=== PATIENT | male | born 1935 | race Caucasian/White ===

== ENCOUNTER 2018-05-22 06:17 | Inpatient (IN) | payer OTHER, BC ==
[~2018-05-22] VITALS: Ht 175.3 cm; Wt 103.1 kg
[2018-05-22] VITALS (7 sets, daily range): BP systolic 93–138
--- NOTE | 2018-05-22 06:20 | NUR ---
Patient to ER bed 4 to gown for evaluation. Side rails up.
--- NOTE | 2018-05-22 06:25 | NUR ---
Patient AOx4, brought to ER via wheelchair for complaint of SOB and epigastric pain 04/10 since 0000. On arrival O2 sat 98% RA. No acute respiratory distress noted. Daughter at bedside.
--- NOTE | 2018-05-22 06:30 | NUR ---
ER MD Grubbs at bedside for medical evaluation.
[2018-05-22] MEDS ORDERED: CEPH-568 PO (06:53)
[2018-05-22] MEDS ORDERED: METH5TAB2 PO (07:19)
[2018-05-22] MEDS ORDERED: HYDR25TA4 PO (07:20)
[2018-05-22] MEDS ORDERED: TAMS-11 PO (07:21)
[2018-05-22] MEDS ORDERED: HYDR-4272 PO (07:22)
[2018-05-22] MEDS ORDERED: BICA50TA PO (07:22)
[2018-05-22] MEDS ORDERED: DOCU250C75 PO (07:23)
[2018-05-22 07:32] LABS: BASOPHILS % (AUTO) 0.1 % (0.0-2.0); HEMATOCRIT 34.7 % (36-54); HEMOGLOBIN 11.6 g/dL (14.0-18.0); LYMPHOCYTES # (AUTO) 0.2 K/uL (1.0-5.5); LYMPHOCYTES % (AUTO) 1.5 % (20.5-51.5); MEAN CORPUSCULAR HEMOGLOBIN 34 pg (27-31); MEAN CORPUSCULAR HGB CONC 33 % (32-36); MEAN CORPUSCULAR VOLUME 102 fL (79.0-98.0); MONOCYTES # (AUTO) 0.8 K/uL (0.0-1.0); MONOCYTES % (AUTO) 5.6 % (1.7-9.3); NEUTROPHILS # (AUTO) 12.6 K/uL (1.8-7.7); NEUTROPHILS % (AUTO) 92.8 % (40.0-70.0); PLATELET COUNT (AUTO) 288 K/uL (130-430); RED CELL DISTRIBUTION WIDTH 17.7 % (9.0-15.0); WHITE BLOOD COUNT (AUTO) 13.6 K/uL (4.8-10.8)
[2018-05-22 07:39] LABS: ANION GAP 12 (5-15); CALCIUM 9.1 mg/dL (8.4-11.0); CHLORIDE 104 mmol/L (98-107); CREATININE 1.13 mg/dL (0.55-1.30); GLUCOSE 122 mg/dL (70-99); POTASSIUM 3.2 mmol/L (3.5-5.1); SODIUM SERUM 140 mmol/L (136-145); UREA NITROGEN, BLOOD 22 mg/dL (8-21)
[2018-05-22] MEDS ORDERED: PIPERACILLIN/TAZO 3.375 GM in NS 50 ML IV ONE (07:45)
[2018-05-22] MEDS ORDERED: VANCOMYCIN HCL 1,000 MG in NS 250 ML IV ONE (07:45)
[2018-05-22] MEDS ORDERED: POTASSIUM CHLORIDE 20 MEQ TAB.PRT.SR PO ONE (07:45)
[2018-05-22 07:47] LABS: ALANINE AMINOTRANSFERASE 74 U/L (12-78); ALBUMIN 3.2 g/dL (3.4-4.8); ASPARTATE AMINOTRANSFERASE 148 U/L (10-37); TOTAL BILIRUBIN 2.7 mg/dL (0.0-1.0)
--- NOTE | 2018-05-22 07:48 | NUR ---
Daughter Denia states pt is a full code and signed paperwork
[2018-05-22] MEDS ORDERED: VANCOMYCIN HCL 1000 MG/VIAL IV ONE (07:56)
[2018-05-22] MEDS ORDERED: PIPERACILLIN/TAZOBACTAM 3.375 GM/VIAL (ZOSYN) IV ONE (07:56)
[2018-05-22] MEDS ORDERED: NACL 0.9% 1,000 ML IV ONE (08:00)
--- NOTE | 2018-05-22 08:10 | NUR ---
Patient will be admitted to care of . Admitted to Telemetry unit. Will go to room 130A. Belongings list completed. Summary report printed. Report will be given at bedside.
--- NOTE | 2018-05-22 08:16 | NUR ---
ADMISSION NOTE Received patient from ER via maximiliano, received report from CHIQUIS ROGEL. Patient admitted with diagnosis of COPD. Patient oriented to hospital routine, call light, toileting and safety-patient verbalized understanding.
--- NOTE | 2018-05-22 08:20 | NUR ---
initial notes rec patient for er with a dx of copd. awake alert with ivl on the l ac intact. hob slightly elevated with with resp easy and unlabored at this time. accompanied by family at bedside. noted bilateral leg to be edematous and also dressing on both legs. bed in low position and side rails up and locked. call light iwhtn reached and knows when to call for assistance.
--- NOTE | 2018-05-22 10:00 | NUR ---
rounds seen by dr zhang and with orders. sleeps at intervals.
[2018-05-22] MEDS ORDERED: IPRATROPIUM BROM 0.5 MG/2.5 ML VIAL.NEB (ATROVENT) INH PRN (11:00)
[2018-05-22] MEDS ORDERED: ALBUTEROL SULFATE 0.083% 2.5 MG/3 ML VIAL.NEB INH PRN (11:00)
[2018-05-22] MEDS ORDERED: METHADONE HCL 5 MG PO PRN (11:15)
[2018-05-22] MEDS ORDERED: cefTRIAXone 1 GM in D5W 50 ML IV SCH (12:00)
[2018-05-22] MEDS: HYDROcodone/ACETAMIN 5-325 MG TAB (NORCO/ VICODIN) PO PRN ×3 (12:24→23:04)
--- NOTE | 2018-05-22 12:41 | NUR ---
rounds due abx was given as ordered. incontinent of urine and keep patieny dry and clean. call light within reached.
--- NOTE | 2018-05-22 12:55 | NUR ---
PAGED PAGED DIMA YOUSSEF AT [phone] SPOKE WITH CHRISTOPHER.
[2018-05-22] MEDS ORDERED: AZITHROMYCIN 500 MG in NS 250 ML IV SCH (13:00)
--- NOTE | 2018-05-22 13:01 | NUR ---
PAGED PAGED DIMA YOUSSEF AT [phone] SPOKE WITH EXCHANGE.
[2018-05-22] MEDS: ALBUTEROL SULFATE 0.083% 2.5 MG/3 ML VIAL.NEB INH SCH ×2 (13:21→19:54)
[2018-05-22] MEDS: IPRATROPIUM BROM 0.5 MG/2.5 ML VIAL.NEB (ATROVENT) INH SCH ×2 (13:22→19:55)
--- NOTE | 2018-05-22 14:00 | NUR ---
rounds family at bedside. resp easy and unlabored. no sob noted. hob slightly elevated.
--- NOTE | 2018-05-22 16:00 | NUR ---
rounds sleeps at intervals and resting comfortably. no osb noted. call light within reached.
--- NOTE | 2018-05-22 16:17 | NUR ---
CONSULTATION CALLED REASON FOR CONSULTATION:COPD WAS CONSULT CALLED?Y PERSON WHO WAS NOTIFIED:ALEX CONSULTING PHYSICIAN:CASSANDRA CRUZ HOTEL YARDPERSON SPECIALTY:PULMONARY HOTEL YARDPERSON PHONE NUMBER:[phone] ORDERING PHYSICIAN:DIMA YOUSSEF
[2018-05-22] MEDS ORDERED: ENOXAPARIN SODIUM 40 MG/0.4 ML SYRINGE SUBCUT ONE (17:45)
--- NOTE | 2018-05-22 18:41 | NUR ---
closing notes dressing changed in the r leg ulcer done and put a consult for jolly in am. medicated with norco as ordered. bothe legs elevated on a pillow. was seen by sahil at bedside and with orders. family in the room with patient. bed in low position and side rails up and locked. call light within reached.
--- NOTE | 2018-05-22 19:30 | NUR ---
PM ASSESSMENT REPORT RECEIVED FROM DAY RN. PT RECEIVED IN BED WITH EYES OPEN, AAOX4, AND ABLE TO VERBALIZE NEEDS. FAMILY IS AT BEDSIDE. PT SR WITH 1ST DEGREE AV BLOCK ON MONITOR. PT ON RA, BREATHING IS EVEN AND UNLABORED. LAC 20G TO SL, PATENT AND INTACT. PT PREFERS TO LAY ON L SIDE DUE TO PAIN LOCATED IN RT HIP AND RLE. PT C/O OF PAIN AT THIS TIME AND WILL MEDICATE PER ORDERS. HOB ELEVATED, BED IN LOWEST POSITION CALL LIGHT IN REACH. WILL CONTINUE TO MONITOR PT.
--- NOTE | 2018-05-22 19:35 | NUR ---
MD TORRI NICOLE MADE AWARE OF PT LIPASE [phone] AT THIS TIME. NEW ORDERS LEFT TO MAKE PT NPO AND START ON IVF. WILL CARRY OUT ORDERED.
--- NOTE | 2018-05-22 20:30 | NUR ---
VENOUS DOPPLER US PT TO RECEIVE VENOUS DOPPLER US AT THIS TIME TO R/O DVT. FAMILY INSISTENT THAT PT CANNOT LIE ON HIS BACK D/T PAIN. EXPLAINED TO FAMILY IMPORTANCE OF US AT THIS TIME AND FAMILY AGREES TO CONTINUE TO WITH US. RT LEG FOUND TO BE NEGATIVE FOR DVT PER US TECH, PT REFUSED LLE US AT THIS TIME D/T PAIN. WILL CONTINUE TO MONITOR PT.
[2018-05-22] MEDS: D5NS 1,000 ML IV SCH (20:53)
[2018-05-22] MEDS: METHADONE HCL 10 MG TABLET PO SCH (20:53)
--- NOTE | 2018-05-22 23:15 | NUR ---
RN ROUNDS PT COMPLAINING OF PAIN IN RLE AT THIS TIME. PT STATES HE IS UNABLE TO SLEEP D/T PAIN. PT REPOSITIONED AND MADE COMFORTABLE. PT GIVEN NORCO PER ORDERS, NO ADVERSE REACTIONS NOTED. WILL CONTINUE TO MONITOR PT.
[2018-05-23] MEDS: IPRATROPIUM BROM 0.5 MG/2.5 ML VIAL.NEB (ATROVENT) INH SCH ×4 (00:50→20:17)
[2018-05-23] MEDS: ALBUTEROL SULFATE 0.083% 2.5 MG/3 ML VIAL.NEB INH SCH ×4 (00:50→20:17)
--- NOTE | 2018-05-23 02:37 | NUR ---
RN ROUNDS PT C/O OF PAIN PRIMARILY ON RT SIDE OF BODY AT THIS TIME. PER PT HE IS STILL UNABLE TO SLEEP AND REFUSES REPOSITIONING AT THIS TIME. PT MADE AWARE THAT PAIN MEDICATION IS NOT DUE AT THIS TIME AND WILL BE ADMINISTERED WHEN POSSIBLE. WILL CONTINUE TO MONITOR PT.
--- NOTE | 2018-05-23 04:05 | NUR ---
RN ROUNDS PT RESTING IN BED WITH EYES CLOSED. BREATHING IS EVEN AND UNLABORED ON RA. NO S/S OF ACUTE DISTRESS NOTED. WILL CONTINUE TO MONITOR PT.
[2018-05-23] MEDS: D5NS 1,000 ML IV SCH ×2 (04:51→17:27)
[2018-05-23] MEDS: HYDROcodone/ACETAMIN 5-325 MG TAB (NORCO/ VICODIN) PO PRN ×3 (04:52→15:29)
--- NOTE | 2018-05-23 06:25 | NUR ---
MD ROUNDS DR. NICOLE IN HOUSE. MD MADE AWARE OF PT C/O CHEST PAIN 05/10. PER DAUGHTER PT TAKES PERCOCET AT HOME FOR PAIN MANAGEMENT PRN. MD TO ORDER STAT EKG AND MORPHINE 2MG IVP X1. WILL CARRY OUT ORDERED.
[2018-05-23] MEDS ORDERED: MORPHINE 2 MG/ML INJ. SYRINGE IVP ONE (06:30)
[2018-05-23] MEDS ORDERED: MORPHINE 2 MG/ML INJ. SYRINGE ONE (06:47)
--- NOTE | 2018-05-23 06:55 | NUR ---
CLOSING NOTES PT RESTING IN BED WITH FAMILY AT BEDSIDE. PT C/O OF CHEST DISCOMFORT 05/10 AT THIS TIME. PT MEDICATED PER ORDERS, NO S/S OF ADVERSE REACTIONS NOTED. BREATHING IS EVEN AND UNLABORED ON RA. D5 NS INFUSING THROUGH LAC 20G AT 100 CC/HR. IV SITE PATENT AND INTACT. NO OTHER NEEDS VERBALIZED AT THIS TIME. WILL CONTINUE TO MONITOR PT.
[2018-05-23 07:02] LABS: BASOPHILS % (AUTO) 0.1 % (0.0-2.0); EOSINOPHILS % (AUTO) 0.2 % (0.0-4.0); HEMATOCRIT 30.7 % (36-54); HEMOGLOBIN 10.4 g/dL (14.0-18.0); LYMPHOCYTES # (AUTO) 0.3 K/uL (1.0-5.5); LYMPHOCYTES % (AUTO) 2.6 % (20.5-51.5); MEAN CORPUSCULAR HEMOGLOBIN 35 pg (27-31); MEAN CORPUSCULAR HGB CONC 34 % (32-36); MEAN CORPUSCULAR VOLUME 104 fL (79.0-98.0); MONOCYTES # (AUTO) 0.4 K/uL (0.0-1.0); MONOCYTES % (AUTO) 3.5 % (1.7-9.3); NEUTROPHILS # (AUTO) 12.1 K/uL (1.8-7.7); NEUTROPHILS % (AUTO) 93.6 % (40.0-70.0); PLATELET COUNT (AUTO) 215 K/uL (130-430); RED BLOOD CELL COUNT(AUTO) 2.95 MIL/uL (4.2-6.2); RED CELL DISTRIBUTION WIDTH 17.6 % (9.0-15.0); WHITE BLOOD COUNT (AUTO) 12.8 K/uL (4.8-10.8)
[2018-05-23 07:05] LABS: ALANINE AMINOTRANSFERASE 84 U/L (12-78); ALBUMIN 2.6 g/dL (3.4-4.8); ANION GAP 10 (5-15); ASPARTATE AMINOTRANSFERASE 74 U/L (10-37); CALCIUM 8.4 mg/dL (8.4-11.0); CHLORIDE 105 mmol/L (98-107); CREATININE 1.12 mg/dL (0.55-1.30); GLUCOSE 128 mg/dL (70-99); SODIUM SERUM 139 mmol/L (136-145); UREA NITROGEN, BLOOD 22 mg/dL (8-21)
[2018-05-23 07:44] LABS: TOTAL BILIRUBIN 4.1 mg/dL (0.0-1.0)
--- NOTE | 2018-05-23 08:00 | NUR ---
initial notes rec patient awake alert with ivf infusing well on the l ac. no infiltration noted. denies pain at this time. hob slightly elevated and resp easy and unlabored. no acute distress noted. npo maintain re elevated lipase. bed in low position and side rails up and locked. call light within reached and knows when to call for help. willcotninue to monitor patient.
[2018-05-23 08:05] VITALS: BP_SYST 133
[2018-05-23] MEDS ORDERED: DIATR MEGLU/DIATRIZ SOD 30 ML SOLUTION PO ONE (08:08)
--- NOTE | 2018-05-23 08:10 | NUR ---
Nutrition Update Jimmy Scale 15 noted. Pt admitted for COPD. Diet: NPO BMI: 29.5 kg/m2 RD to follow per nutrition care standards.
--- NOTE | 2018-05-23 10:00 | NUR ---
rounds pt was taken to ct scan of the abdomen via bed , accompanied by family. no sob noted.
[2018-05-23] MEDS ORDERED: POTASSIUM CHLORIDE 40 MEQ, LIDOCAINE JECT 2% PF 100 MG 50 MG in NS 250 ML IV ONE (12:00)
--- NOTE | 2018-05-23 12:00 | NUR ---
rounds npo maintained. sleeps at intervals. no sob noted.
[2018-05-23 12:10] VITALS: BP_SYST 151
[2018-05-23] MEDS: PIPERACILLIN/TAZO 3.375/DEX-IS 50 ML IV SCH ×3 (12:36→23:15)
[2018-05-23] MEDS ORDERED: IOHEXOL 100 ML IV ONE (12:38)
[2018-05-23] MEDS: HYDROCHLOROTHIAZIDE 25 MG TABLET (HCTZ) PO SCH (12:47)
[2018-05-23] MEDS: DOCUSATE SODIUM 100 MG CAPSULE PO SCH (12:48)
[2018-05-23] MEDS: TAMSULOSIN HCL 0.4 MG CAP PO SCH (12:48)
[2018-05-23] MEDS: METHADONE HCL 10 MG TABLET PO SCH ×2 (12:48→20:32)
[2018-05-23] MEDS: ENOXAPARIN SODIUM 40 MG/0.4 ML SYRINGE SUBCUT SCH (12:49)
[2018-05-23] MEDS: BICALUTAMIDE 50 MG TABLET PO SCH (12:50)
--- NOTE | 2018-05-23 13:35 | NUR ---
WOUND EVALUATION: Late entry for 1015 secondary to patient care. Wound Consult received from Dr. Palomino. Thank you, Dr. Palomino, for the consult. Patient received in a Eugene Bed with an Atmos air mattress, awake, alert, and oriented. Patient is unable to turn independently. Jimmy Score is a 15. Past Medical History: Prostate CA, Osteoarthritis, chronic pain. Recent Labs: WBC 12.8, RBC 2.95, HGB 10.4, HCT 30.7, Platelets 215, Potassium 3.0, BUN 22, Glucose 128, Total Bilirubin 4.1, AST 74, ALT 84, Albumin 2.6. Intrinsic factors that delay wound healing: Prostate CA, Osteoarthritis, chronic pain. Extrinsic factors that delay wound healing: Decreased mobility. Microbiology: Blood culture x2 in progress. Bilateral lower extremities have nonpitting edema. Wound Assessment: 1. Right posterior calf: Wound, present on admission. Wound bed is 50% yellow, 50% pink. No odor, scant serosanguineous drainage. Naye-wound intact. Measures 3.4 cm x 1.6 cm. 2. Right posterior calf, superior to wound 1: Wound, present on admission. Wound bed is 100% pink. No odor, scant serosanguineous drainage. Naye-wound intact. Measures 0.7 cm x 0.3 cm. 3. Right anterior murillo: Wound, present on admission. Wound bed is 90% yellow, 10% pink. No odor, scant serosanguineous drainage. Naye-wound intact. Measures 5.7 cm x 3.5 cm. 4. Right anterior murillo, inferior to wound 3: Wound, present on admission. Wound bed is 100% yellow. No odor, scant serosanguineous drainage. Naye-wound intact. Measures 1.0 cm x 0.9 cm. 5. Right anterior murillo, lateral to wound 3: Wound, present on admission. Wound bed is 100% pink. No odor, scant serosanguineous drainage. Naye-wound intact. Measures 2.0 cm x 0.5 cm. 6. Right lateral lower extremity: Wound, present on admission. Wound bed is 50% yellow, 50% brown. No odor, scant serosanguineous drainage. Naye-wound intact. Measures 3.4 cm x 2.8 cm. Recommend: Cleanse wounds with normal saline. Pat dry. Place moisture barrier cream onto naye-wounds. Place hydrogel onto wound beds. Place oil emulsion dressing onto site. Cover with non adherent foam dressing. Wrap with Luis wrap. Perform wound care daily, and as needed for dressing soiling or dislodgement. Also recommend: Reposition patient every 2 hours with pillow support and off-load pressure areas with pillows for pressure re-distribution. Offload, elevate and float bilateral heels with pillows. Perform skin care and monitor skin integrity Q shift. Use moisture barrier cream on buttocks and other moisture susceptible areas QID and as needed for soiling.
--- NOTE | 2018-05-23 13:52 | NUR ---
CONSULT SURGERY CHOLECYSTITIS DR PATEL [phone] S/W ROSSY EXCHANGE
--- NOTE | 2018-05-23 14:00 | NUR ---
rounds dr arreaga called and stated that dr akbar called him re the result of the ct abdomen. stated to call dr zhang for a surgical consult and ordered dr hannah. awaiting for dr hannah to come and talk to patient. explained to family re the tel conversation with dr arreaga. no acute distress noted.
[2018-05-23 17:00] VITALS: BP_SYST 123
--- NOTE | 2018-05-23 17:56 | NUR ---
rounds pt is asleep , resting comfortably at this time. no acute distress noted. family at bedside with patient. call light within reached.
--- NOTE | 2018-05-23 19:00 | NUR ---
closing notes continue to sleep at intervals, and resting comfortably. bed in low position, call light within reached. family at bedside.
[2018-05-23 20:00] VITALS: BP_SYST 129
--- NOTE | 2018-05-23 20:00 | NUR ---
Initial Notes Received patient resting in bed, awake, alert, oriented, family at bedside. Patient denies any acute distress or pain when asked. Vital signs stable. Breathing is even and unlabored. IV site patent/clean/dry. Shaw draining to gravity. Dressing to right leg clean/dry/intact. Needs addressed. Educated patient regarding use of call light for assistance and fall precautions, patient verbalized understanding. Call light in hand, will continue to monitor.
--- NOTE | 2018-05-23 22:00 | NUR ---
Nursing Notes Patient resting in bed with eyes closed, easily aroused. Patient denies any acute distress or pain when asked. Breathing is even and unlabored. IV site patent/clean/dry. Shaw draining to gravity. Needs addressed. Call light in hand, fall precautions in place.
[2018-05-23 23:24] VITALS: BP_SYST 145
--- NOTE | 2018-05-24 | NUR ---
Nursing Notes Patient resting in bed with eyes closed. No acute distress noted, breathing is even and unlabored. IV site patent/clean/dry. Shaw draining to gravity. Call light in hand, fall precautions in place. Will continue to monitor.
[2018-05-24] MEDS: ALBUTEROL SULFATE 0.083% 2.5 MG/3 ML VIAL.NEB INH SCH ×4 (00:41→20:06)
[2018-05-24] MEDS: IPRATROPIUM BROM 0.5 MG/2.5 ML VIAL.NEB (ATROVENT) INH SCH ×4 (00:41→20:06)
--- NOTE | 2018-05-24 02:11 | NUR ---
Nursing Notes Patient resting in bed, awake. Patient denies any acute distress or pain at this time. IV site patent/clean/dry. Breathing is even and unlabored. Repositioned patient for comfort. Needs addressed. Will continue to monitor.
--- NOTE | 2018-05-24 05:00 | NUR ---
Nursing Notes Patient resting in bed, awake. Patient denies any acute distress. Medicated for pain per MD orders. Flu vaccine given to patient per patient request. Needs addressed. Call light in hand, fall precautions in place. Will continue to monitor.
[2018-05-24] MEDS: PIPERACILLIN/TAZO 3.375/DEX-IS 50 ML IV SCH ×3 (05:05→17:30)
[2018-05-24] MEDS: D5NS 1,000 ML IV SCH ×3 (05:05→23:59)
[2018-05-24] MEDS: HYDROcodone/ACETAMIN 5-325 MG TAB (NORCO/ VICODIN) PO PRN ×2 (05:06→22:30)
[2018-05-24 06:22] LABS: BASOPHILS % (AUTO) 0.1 % (0.0-2.0); HEMATOCRIT 32.3 % (36-54); HEMOGLOBIN 11.1 g/dL (14.0-18.0); LYMPHOCYTES # (AUTO) 0.5 K/uL (1.0-5.5); LYMPHOCYTES % (AUTO) 3.4 % (20.5-51.5); MEAN CORPUSCULAR HEMOGLOBIN 36 pg (27-31); MEAN CORPUSCULAR HGB CONC 34 % (32-36); MEAN CORPUSCULAR VOLUME 103 fL (79.0-98.0); MONOCYTES % (AUTO) 6.4 % (1.7-9.3); NEUTROPHILS # (AUTO) 14.3 K/uL (1.8-7.7); NEUTROPHILS % (AUTO) 90.1 % (40.0-70.0); PLATELET COUNT (AUTO) 217 K/uL (130-430); RED BLOOD CELL COUNT(AUTO) 3.13 MIL/uL (4.2-6.2); RED CELL DISTRIBUTION WIDTH 16.8 % (9.0-15.0); WHITE BLOOD COUNT (AUTO) 15.8 K/uL (4.8-10.8)
--- NOTE | 2018-05-24 06:37 | NUR ---
Closing Notes Patient resting in bed with eyes closed, easily aroused. Patient denies any acute distress or pain at this time. Breathing is even and unlabored. IV site patent/clean/dry, no S/S infection/infiltration noted. Shaw draining yellow urine to gravity. Dressing remans clean/dry/intact. Needs addressed throughout shift. Call light in hand, fall precautions in place. Will continue to monitor for safety and changes, and endorse all patient care/needs to oncoming nurse.
[2018-05-24 06:46] LABS: ALANINE AMINOTRANSFERASE 63 U/L (12-78); ALBUMIN 2.4 g/dL (3.4-4.8); ANION GAP 8 (5-15); CALCIUM 8.6 mg/dL (8.4-11.0); CHLORIDE 104 mmol/L (98-107); CREATININE 1.01 mg/dL (0.55-1.30); GLUCOSE 132 mg/dL (70-99); POTASSIUM 3.2 mmol/L (3.5-5.1); SODIUM SERUM 136 mmol/L (136-145); TOTAL BILIRUBIN 1.9 mg/dL (0.0-1.0); UREA NITROGEN, BLOOD 16 mg/dL (8-21)
[2018-05-24 06:49] LABS: ASPARTATE AMINOTRANSFERASE 34 U/L (10-37); LIPASE 341 U/L (73-393)
--- NOTE | 2018-05-24 07:34 | NUR ---
AM ROUNDS: Report received from PEBBLES Gomez for continuation of care. Patient is sleeping in bed. No signs or symptoms of distress noted.
[2018-05-24 08:00] VITALS: BP_SYST 128
--- NOTE | 2018-05-24 08:49 | NUR ---
NPO: Patient is NPO for MRCP to be done this morning.
--- NOTE | 2018-05-24 09:14 | NUR ---
MEDICATION: Spoke with Valery in MRI, she stated it was ok for patient to have medication prior to MRI.
[2018-05-24] MEDS: DOCUSATE SODIUM 100 MG CAPSULE PO SCH (09:22)
[2018-05-24] MEDS: TAMSULOSIN HCL 0.4 MG CAP PO SCH (09:22)
[2018-05-24] MEDS: METHADONE HCL 10 MG TABLET PO SCH ×2 (09:22→21:24)
[2018-05-24] MEDS: HYDROCHLOROTHIAZIDE 25 MG TABLET (HCTZ) PO SCH (09:23)
[2018-05-24] MEDS: ENOXAPARIN SODIUM 40 MG/0.4 ML SYRINGE SUBCUT SCH (09:24)
[2018-05-24] MEDS: BICALUTAMIDE 50 MG TABLET PO SCH (09:25)
--- NOTE | 2018-05-24 09:40 | NUR ---
MD COMMUNICATION: Dr. Palomino is on the floor. Informed him that patient has a fever and potassium level of 3.2 MD verbalized understanding, stated he would put in orders.
[2018-05-24] MEDS ORDERED: POTASSIUM CHLORIDE 40 MEQ, LIDOCAINE JECT 2% PF 100 MG 50 MG in NS 250 ML IV ONE (09:45)
[2018-05-24] MEDS ORDERED: ACETAMINOPHEN 650 MG/20.3 ML UDC PO PRN (09:45)
--- NOTE | 2018-05-24 10:36 | NUR ---
MEDICATION: K-Liborio not available. Spoke with pharmacist, states tech is still working on it.
[2018-05-24] MEDS: MORPHINE 4 MG/ML INJ. SYRINGE IVP PRN ×2 (10:42→15:33)
--- NOTE | 2018-05-24 10:42 | NUR ---
ROUNDS: Updated family on MRI status. They verbalized understanding. No signs or symptoms of distress noted.
--- NOTE | 2018-05-24 11:41 | NUR ---
TRANSFERRED TO MRI: Patient transferred to MRI truck via gurney with 2 MRI technicians.
[2018-05-24 12:55] VITALS: BP_SYST 149
--- NOTE | 2018-05-24 13:15 | NUR ---
RETURNED: Patient returned from MRI. Placed back on quality assurance monitor.
--- NOTE | 2018-05-24 14:05 | NUR ---
Dietitian Recommendations * Recommend continuing NPO per MD * Consider advance to mechanical soft diet w/ Ensure Enlive BID (oral supplement provides an additional 700 kcal/day and 40 gm protein/day) LP, RD Please refer to Nutrition Assessment for details.
--- NOTE | 2018-05-24 14:28 | NUR ---
PATIENT RESTING: Patient resting quietly. No acute distress noted.
--- NOTE | 2018-05-24 14:36 | NUR ---
MD ROUNDS: Dr. Ortega in to see patient. He informed family that patient will remain NPO for another day.
--- NOTE | 2018-05-24 16:00 | NUR ---
PATIENT RESTING: Patient resting quietly. No acute distress noted.
[2018-05-24 16:21] VITALS: BP_SYST 141
--- NOTE | 2018-05-24 18:09 | NUR ---
CLOSING NOTE: All needs met. No change in assessment. Will endorse to NOC shift nurse.
--- NOTE | 2018-05-24 19:15 | NUR ---
CHANGE OF SHIFT: pt. awake, alert in bed with family at bedside. no complaints manifested. kept NPO as ordered. instructed family and pt. to call for help.
[2018-05-24 20:15] VITALS: BP_SYST 142
--- NOTE | 2018-05-24 20:21 | NUR ---
NOTES: pt. awakened, reoriented. RT here for breathing treatment, IV via left antecubital. seo cath to OSD. cardiac pattern on sinus rhythm. both legs /feet pretty swollen, kept elevated with pillows. rt. leg wound dressing intact. family remain at bedside. plan of care discussed with daughter Faye.
--- NOTE | 2018-05-24 22:30 | NUR ---
NOTES: pt. repositioned on his side with the help of his daughter, medicated for pain on his rt. hip, that comes and goes with sips of H2O. kept warm. call light within reach.
--- NOTE | 2018-05-25 00:22 | NUR ---
NOTES: pt. sleeping when checked but awakened easily. pt. claims come and goes. IV antibiotic infused as scheduled. repositioned on his back again. pt. needs attended.
[2018-05-25 00:56] VITALS: BP_SYST 109
[2018-05-25] MEDS: IPRATROPIUM BROM 0.5 MG/2.5 ML VIAL.NEB (ATROVENT) INH SCH ×4 (01:23→19:00)
[2018-05-25] MEDS: ALBUTEROL SULFATE 0.083% 2.5 MG/3 ML VIAL.NEB INH SCH ×4 (01:23→19:00)
--- NOTE | 2018-05-25 02:30 | NUR ---
NOTES: pt. repositioned on his side. condition observed. continue to monitor. call light within reach.
[2018-05-25] MEDS: PIPERACILLIN/TAZO 3.375/DEX-IS 50 ML IV SCH ×5 (05:14→23:20)
--- NOTE | 2018-05-25 05:39 | NUR ---
NOTES: pt. awakened, repositioned in bed. both legs kept elevated. went back to sleep after. oral swab done.
--- NOTE | 2018-05-25 06:30 | NUR ---
CLOSING NOTES; pt. remain asleep. for further care and assistance. IVF patent and seo cath intact and draining yellow urine output. fall precautions observed, bed alarm on. rt/ leg dressing intact/
[2018-05-25 06:45] LABS: BASOPHILS # (AUTO) 0.1 K/uL (0.0-0.2); BASOPHILS % (AUTO) 0.3 % (0.0-2.0); EOSINOPHILS % (AUTO) 0.1 % (0.0-4.0); HEMATOCRIT 31.5 % (36-54); HEMOGLOBIN 10.9 g/dL (14.0-18.0); LYMPHOCYTES # (AUTO) 0.9 K/uL (1.0-5.5); LYMPHOCYTES % (AUTO) 4.7 % (20.5-51.5); MEAN CORPUSCULAR HEMOGLOBIN 36 pg (27-31); MEAN CORPUSCULAR HGB CONC 35 % (32-36); MEAN CORPUSCULAR VOLUME 103 fL (79.0-98.0); MONOCYTES # (AUTO) 1.1 K/uL (0.0-1.0); MONOCYTES % (AUTO) 6.1 % (1.7-9.3); NEUTROPHILS # (AUTO) 16.3 K/uL (1.8-7.7); PLATELET COUNT (AUTO) 249 K/uL (130-430); RED BLOOD CELL COUNT(AUTO) 3.06 MIL/uL (4.2-6.2); RED CELL DISTRIBUTION WIDTH 16.6 % (9.0-15.0); WHITE BLOOD COUNT (AUTO) 18.4 K/uL (4.8-10.8)
[2018-05-25 07:19] LABS: ALANINE AMINOTRANSFERASE 39 U/L (12-78); ANION GAP 8 (5-15); ASPARTATE AMINOTRANSFERASE 14 U/L (10-37); CALCIUM 8.2 mg/dL (8.4-11.0); CHLORIDE 105 mmol/L (98-107); CREATININE 0.96 mg/dL (0.55-1.30); GLUCOSE 113 mg/dL (70-99); LIPASE 125 U/L (73-393); SODIUM SERUM 137 mmol/L (136-145); TOTAL BILIRUBIN 1.2 mg/dL (0.0-1.0); UREA NITROGEN, BLOOD 17 mg/dL (8-21)
--- NOTE | 2018-05-25 07:20 | NUR ---
endorsed pt. to incoming shift with nurse Bain.
[2018-05-25 08:00] VITALS: BP_SYST 141
--- NOTE | 2018-05-25 08:00 | NUR ---
RN OPENING NOTE PATIENT RESTING ON BED, ALERT ORIENTED X 4, DENIES PAIN OR DISCOMFORT. PATIENT WAS ASSESSED AND VITAL SIGNS ARE STABLE. BED AT LOW POSITION AND CALL LIGHT WITHIN REACH, WILL CONTINUE TO MONITOR.
[2018-05-25 08:04] VITALS: BP_SYST 141
[2018-05-25] MEDS: TAMSULOSIN HCL 0.4 MG CAP PO SCH (08:33)
[2018-05-25] MEDS: DOCUSATE SODIUM 100 MG CAPSULE PO SCH (08:33)
[2018-05-25] MEDS: METHADONE HCL 10 MG TABLET PO SCH ×2 (08:34→20:40)
[2018-05-25] MEDS: HYDROCHLOROTHIAZIDE 25 MG TABLET (HCTZ) PO SCH (08:34)
[2018-05-25] MEDS: BICALUTAMIDE 50 MG TABLET PO SCH (08:37)
[2018-05-25] MEDS: ENOXAPARIN SODIUM 40 MG/0.4 ML SYRINGE SUBCUT SCH (08:41)
--- NOTE | 2018-05-25 10:00 | NUR ---
RN NOTE PATIENT RESTING ON BED, DAUGHTER IS BY THE BED SIDE, PATIENT DENIES PAIN OR DISCOMFORT. BOTH WERE EDUCATED ABOUT FALL PREVENTION AND CHOLECYSTITIS, SYMPTOMS AND SIGNS, THEY VERBALIZED UNDERSTANDING. WILL CONTINUE TO MONITOR.
[2018-05-25] MEDS ORDERED: POTASSIUM CHLORIDE 20 MEQ TAB.PRT.SR PO ONE (10:30)
[2018-05-25 12:00] VITALS: BP_SYST 128
--- NOTE | 2018-05-25 12:00 | NUR ---
RN NOTE PATIENT WAS GIVEN HIS IVPB OF ZOSYN, WELL A NEW BAG OF HIS IVF. PATIENT DENIES PAIN OR DISCOMFORT ,STILL NPO. WILL CONTACT DR. PATEL TO SEE ABOUT HIS DECISION REGARDING OPERATING ON THIS PATIENT TODAY. SINCE PATIENT IS NPO PAST MIDNIGHT.
[2018-05-25] MEDS: D5NS 1,000 ML IV SCH (12:18)
[2018-05-25 12:30] VITALS: BP_SYST 131
[2018-05-25 13:37] LABS: NEUTROPHILS % (AUTO) 88.8 % (40.0-70.0)
--- NOTE | 2018-05-25 13:45 | NUR ---
TRANG DC PLANNING: Pt sleeping; met with Sarbjit in room with 2 other daughters of patient at bedside. Discussed DC POC to educate on assistance of HH services or SNF if recommended per MD at time of DC. Per Sarbjit, Pt reluctant to have HH or go to SNF as only prefers to have family care for him. Per Sarbjit, Pt may benefit from BSC at time of DC to assist with use over toilet for higher seat and handles for stability. During visit with family, nursing came to room to inform that Pt will be going to surgery today around 2:30-3 p.m. for cholecystectomy.
--- NOTE | 2018-05-25 14:00 | NUR ---
RN NOTE PATIENT WILL BE GOING TO OR FOR LAPAROSCOPIC CHOLECYSTECTOMY POSSIBLE OPEN [place]. CONSENT WAS ORDERED BY THE PATIENT AND RISKS AND BENEFITS WERE EXPLAINED TO THE PATIENT BY DR. PATEL. PATIENT SIGNED THE CONSENT, AN MRSA SWAB WAS SENT TO THE LAB. PATIENT DENIES PAIN OR DISCOMFORT, WILL GO FOR LUNCH AND SIGN OFF THE PATIENT CARE FOR OR CARE. WILL RESUME POST OP CARE IF THE PATIENT COMES BACK TO THE FLOOR.
[2018-05-25 14:08] LABS: INR 1.1 (0.80-1.20); PROTHROMBIN TIME 10.7 SECS (9.5-12.5)
[2018-05-25] MEDS ORDERED: LR 1,000 ML IV SCH (15:36)
[2018-05-25] MEDS ORDERED: MORPHINE 4 MG/ML INJ. SYRINGE IVP PRN ×3 (15:45)
[2018-05-25] MEDS ORDERED: METOCLOPRAMIDE HCL 10 MG/2 ML VIAL IVP PRN (15:45)
[2018-05-25] MEDS ORDERED: LR 1,000 ML IV.SOLN IV ONE (16:30)
[2018-05-25] MEDS ORDERED: BUPIVACAINE /EPINEPHRINE/PF 0.25% 30 ML VIAL INJ ONE (16:30)
[2018-05-25] MEDS ORDERED: NS IRRIG SOLN 1000 ML IR ONE (16:30)
[2018-05-25] MEDS ORDERED: SUGAMMADEX SODIUM 200 MG/2 ML VIAL IV ONE (16:30)
[2018-05-25] MEDS ORDERED: ONDANSETRON HCL 4 MG/2 ML VIAL ONE (16:30)
[2018-05-25] MEDS ORDERED: PROPOFOL 200MG/ 20ML VIAL (DIPRIVAN) IV ONE (16:30)
[2018-05-25] MEDS ORDERED: fentaNYL CITRATE/PF 100 MCG/2 ML AMP ONE (16:30)
[2018-05-25] MEDS ORDERED: SEVOFLURANE 15 MIN GAS INH ONE (16:30)
[2018-05-25] MEDS ORDERED: MIDAZOLAM HCL 5 MG/ML VIAL (VERSED) IV ONE (16:30)
[2018-05-25] MEDS ORDERED: NS 1000 ML IV.SOLN IV ONE (16:30)
[2018-05-25] MEDS ORDERED: ROCURONIUM BROMIDE 10 MG/ML (ZEMURON) ONE (16:30)
[2018-05-25] MEDS ORDERED: MORPHINE 4 MG/ML INJ. SYRINGE ONE ×2 (16:36→17:10)
[2018-05-25 17:35] VITALS: BP_SYST 117
--- NOTE | 2018-05-25 17:35 | NUR ---
Post operative note From PACU after laparoscopic cholecystectomy with lysis of adhesion under general anesthesia, Patient open eyes to verbal stimuli answer question , vitals sign monitored , with abdominal dressing x3 dry/clean , TASIA to right lower quadrant draining light pink color 20 cc , head bed semi fowlers , denies any pain ,NPO will monitored ; family member at the bedside.
--- NOTE | 2018-05-25 18:00 | NUR ---
RN NOTE PATIENT JUST CAME FROM RECOVERY, REPORT WAS RECEIVED BY JENN CHAPA ADN NURSE. PATIENT IS RESTING ON BED, ALERT ORIENTED X3, DENIES PAIN OR DISCOMFORT. PATIENT WAS HOOKED BACK TO HIS IVF. AND WAS GIVEN HIS IVPB OF ZOSYN, TASIA DRAINAGE HAS A VERY LITTLE SEROSANGEONUS FLUID. WILL CONTINUE TO MONITOR. TALKED WITH DR. GALVEZ REGARDING CHANGING THE IVF THE PATIENT HAD SINCE HE CAME OUT WITH RINGER LACTATE. HE SAID TO ORDER D5 1/2 NS TO RUN AT 100 FOR THE PATIENT. WILL ENDORSE TO NEXT SHIFT.
--- NOTE | 2018-05-25 19:20 | NUR ---
CHANGE OF SHIFT: pt. sleepy but arousable. daughter at bedside and will stay for the night. S/P [place] with 1 J nieto with serous drainage, abdominal dressing intact, kept NPO at this time. VS monitored. IVF via left antecubital with LR. pt. c/o post op pain and will check for due pain med. seo cath to OSD. instructed on deep breathing and use of Incentive spirometer. call light within reach. Addendum: 05/25/18 at 2138 by Samara Higuera RN with O2 @ 2l/nc. HOB on mid fowlers position. both legs keep elevated, rt. wound leg with dressing intact.
[2018-05-25] MEDS: MORPHINE 4 MG/ML INJ. SYRINGE IVP PRN (20:39)
[2018-05-25] MEDS: POTASSIUM CHLORIDE 20 MEQ TAB.PRT.SR PO SCH (20:40)
--- NOTE | 2018-05-25 20:40 | NUR ---
NOTES: pt. medicated with Morphine IV for c/o post op abdominal pain, turn to his left side. instructed on deep breathing.
[2018-05-25] MEDS: D5/0.45 NS 1,000 ML IV SCH (20:44)
--- NOTE | 2018-05-25 22:35 | NUR ---
NOTES: pt. sleeping when checked, daughter at bedside. condition observed.
[2018-05-26] MEDS: MORPHINE 4 MG/ML INJ. SYRINGE IVP PRN ×5 (00:25→22:24)
--- NOTE | 2018-05-26 00:30 | NUR ---
NOTES: pt. medicated for c/o post op abdominal pain. wants to stay on his left side. george nieto drained 70 cc.
[2018-05-26 00:38] VITALS: BP_SYST 131
[2018-05-26] MEDS: D5NS 1,000 ML IV SCH (01:00)
[2018-05-26] MEDS: IPRATROPIUM BROM 0.5 MG/2.5 ML VIAL.NEB (ATROVENT) INH SCH ×4 (01:00→19:56)
[2018-05-26] MEDS: ALBUTEROL SULFATE 0.083% 2.5 MG/3 ML VIAL.NEB INH SCH ×4 (01:00→19:56)
--- NOTE | 2018-05-26 02:45 | NUR ---
NOTES: pt. sleeping, continue to monitor. pt. needs attended.
--- NOTE | 2018-05-26 04:47 | NUR ---
NOTES: pt. been sleeping on his side, appears comfortable.
[2018-05-26] MEDS: PIPERACILLIN/TAZO 3.375/DEX-IS 50 ML IV SCH ×4 (05:24→23:24)
[2018-05-26] MEDS: D5/0.45 NS 1,000 ML IV SCH ×2 (05:45→15:59)
--- NOTE | 2018-05-26 06:00 | NUR ---
NOTES: rt. leg dressing changed. IV site on left antecubital leaking and swollen, restarted another IV site on left hand with gauge 22. abdominal dressing intact with J-nieto intact. seo cath to OSD. daughter at bedside assisting. repositioned on his back, HOB elevated. Instructed on deep breathing and use of Incentive spirometer.
[2018-05-26 06:34] LABS: ANION GAP 9 (5-15); CALCIUM 8.1 mg/dL (8.4-11.0); CHLORIDE 106 mmol/L (98-107); CREATININE 1.23 mg/dL (0.55-1.30); GLUCOSE 132 mg/dL (70-99); POTASSIUM 3.2 mmol/L (3.5-5.1); SODIUM SERUM 138 mmol/L (136-145); UREA NITROGEN, BLOOD 23 mg/dL (8-21)
[2018-05-26 06:36] LABS: EOSINOPHILS % (AUTO) 0.1 % (0.0-4.0); HEMATOCRIT 28.3 % (36-54); HEMOGLOBIN 9.7 g/dL (14.0-18.0); LYMPHOCYTES # (AUTO) 0.8 K/uL (1.0-5.5); LYMPHOCYTES % (AUTO) 6.5 % (20.5-51.5); MEAN CORPUSCULAR HEMOGLOBIN 35 pg (27-31); MEAN CORPUSCULAR HGB CONC 34 % (32-36); MEAN CORPUSCULAR VOLUME 103 fL (79.0-98.0); MONOCYTES # (AUTO) 0.9 K/uL (0.0-1.0); MONOCYTES % (AUTO) 7.4 % (1.7-9.3); NEUTROPHILS # (AUTO) 10.2 K/uL (1.8-7.7); PLATELET COUNT (AUTO) 253 K/uL (130-430); PROTHROMBIN TIME 10.6 SECS (9.5-12.5); RED BLOOD CELL COUNT(AUTO) 2.74 MIL/uL (4.2-6.2); RED CELL DISTRIBUTION WIDTH 16.4 % (9.0-15.0); WHITE BLOOD COUNT (AUTO) 11.9 K/uL (4.8-10.8)
--- NOTE | 2018-05-26 06:41 | NUR ---
CLOSING NOTES; pt. was medicated with Morphine IV earlier for c/o post op abdominal pain, pt. now resting and calm and noted relief of pain. for further and assistance. call light within reach, fall risk precautions observed. kept NPO.
[2018-05-26 06:43] LABS: ALANINE AMINOTRANSFERASE 40 U/L (12-78); ALBUMIN 1.7 g/dL (3.4-4.8)
[2018-05-26 06:45] LABS: ASPARTATE AMINOTRANSFERASE 29 U/L (10-37)
--- NOTE | 2018-05-26 07:26 | NUR ---
endorsed pt. to incoming shift with nurse Payne. pt. sleeping, daughter remain at bedside.
[2018-05-26 08:00] VITALS: BP_SYST 118
--- NOTE | 2018-05-26 08:00 | NUR ---
Opening Note received report from third shift lieutenant RN, pt resting in bed, A&Ox4, respirations even and unlabored, no acute distress noted, IV site clean, dry, intact, and infusing well, seo catheter draining to gravity, surgical dressing to abdomen clean, dry, and intact, TASIA drain in place, 65ml red drainage emptied from TASIA drain, pts temp 99.0, cool packs provided, extra blankets removed, dressing to right leg in place, wound care completed this AM by third shift lieutenant RN, pt educated on use of call light and asked to call for assistance, pt verbalized understanding, call light in reach, bed in low position, bed alarm on, fall and aspiration precautions in place.
--- NOTE | 2018-05-26 08:05 | NUR ---
Isidro PICKENS Pagebaylee Ortega for diet orders.
[2018-05-26] MEDS: HYDROCHLOROTHIAZIDE 25 MG TABLET (HCTZ) PO SCH (08:41)
[2018-05-26] MEDS: DOCUSATE SODIUM 100 MG CAPSULE PO SCH (08:41)
[2018-05-26] MEDS: POTASSIUM CHLORIDE 20 MEQ TAB.PRT.SR PO SCH ×2 (08:41→21:05)
[2018-05-26] MEDS: METHADONE HCL 10 MG TABLET PO SCH ×2 (08:41→21:05)
[2018-05-26] MEDS: TAMSULOSIN HCL 0.4 MG CAP PO SCH (08:41)
[2018-05-26] MEDS: BICALUTAMIDE 50 MG TABLET PO SCH (08:42)
[2018-05-26] MEDS: ENOXAPARIN SODIUM 40 MG/0.4 ML SYRINGE SUBCUT SCH (08:43)
--- NOTE | 2018-05-26 08:51 | NUR ---
Medication pt and pts daughter educated on medication use and side effects, pt and pts daughter verbalized understanding, pt tolerated medication administration well, no acute distress noted, fall and aspiration precautions in place.
[2018-05-26] MEDS ORDERED: POTASSIUM CHLORIDE 20 MEQ TAB.PRT.SR PO ONE (10:00)
--- NOTE | 2018-05-26 10:46 | NUR ---
Medication pt and daughter educated on use and side effects of medication, pt and daughter verbalized understanding, pt tolerated medication administration well, no acute distress noted, pt complaint of pain 9/10 to abdomen, pt refusing PRN pain medications, pt assisted to reposition, daughter at bedside, fall and aspiration precautions in place.
--- NOTE | 2018-05-26 11:05 | NUR ---
Pain Management/Medication pt complaint of pain 04/10 to abdomen, pt requesting PRN pain medication, pt and pts daughter educated on use and side effects of PRN pain medication, pt and pts daughter verbalized understanding, vital signs stable, pt tolerated medication administration well, no acute distress noted, fall and aspiration precautions in place.
--- NOTE | 2018-05-26 11:44 | NUR ---
Medication pt and pts daughter educated on medication use and side effects, pt and pts daughter verbalized understanding, tolerating medication administration well, no acute distress noted, fall and aspiration precautions in place.
[2018-05-26 12:34] VITALS: BP_SYST 126
--- NOTE | 2018-05-26 13:33 | NUR ---
PT EVALUATION COMPLETED. PATIENT IS MAX ASSIST BED MOBILITY; SIT AT BEDSIDE CONTACT GUARD; SIT TO STAND MAX ASSIST. SEE EVALUATION. DAUGHTER WAS PRESENT.
--- NOTE | 2018-05-26 14:05 | NUR ---
RN Rounds pt resting in bed, respirations even and unlabored on room air, pt reports pain controlled at this time, no acute distress noted, fall and aspiration precautions in place.
--- NOTE | 2018-05-26 16:02 | NUR ---
IV fluids pt and family educated on use and side effects of IV fluid administration, pt and pts family verbalized understanding, new IV fluid bag hung at this time, pt tolerating well, no redness or swelling noted at IV site, no acute distress noted, fall and aspiration precautions in place.
--- NOTE | 2018-05-26 16:08 | NUR ---
CM DC PLANNING: MET WITH Pt's DTRs/ANDRES AND DANITZA AT BEDSIDE TO DISCUSS ANTICIPATED DC TO SNF DUE TO Pt's STRONG PREFERENCE TO NOT DC TO ANY SNF. CM PROVIDED DTRs WITH SNF LIST AND STARRED MD RECOMMENDATION OF [facility]; ALONG WITH OTHER [facility] FOR [facility] GARCIA MD CONTINUITY OF CARE AFTER DC TO SNF, WELL , OTHER SNFs NEAR [place] WHERE Pt LIVES. CM REQUESTED DTRs TO LOOK UP ON-LINE AND/OR VISIT SNFs TO DETERMINE THEIR PREFERENCES. CM INFORMED THAT CURRENTLY Pt IS HAVING IV ABX EVERY 6 HRS WHICH IS NOT POSSIBLE TO BE DELIVERED IN THE HOME DUE TO HH RN ONLY VISITING ONCE PER DAY, AND, THERE IS A HIGH RISK OF IV INFILTRATION AND MISSED DOSES. CM INFORMED CULTURES FROM SURGERY WILL NOT BE AVAILABLE UNTIL SAT/SUN WHICH MAY INDICATE A NEED TO CHANGE TYPE OF IV ABX. DTR/ANDRES STATED SHE WILL DISCUSS WITH Pt TO SEE IF HE IS WILLING TO GO TO SNF. CM ENCOURAGED DTR TO ENCOURAGE Pt TO GO TO SNF IF NEEDED FOR THE IV ABX AND CONCENTRATED PT AND, THIS WILL BE A SHORT TERM STAY; AND, TO REASSURE Pt FAMILY WILL BE WITH HIM IF THEY CAN ARRANGE TO HELP HIM BE MORE RELAXED IN THE ENVIRONMENT SO HE HAS THE BEST RECOVERY POSSIBLE. CM ALSO INFORMED IF Pt IS ABLE TO DC HOME WITH HH PER MD RECOMMENDATIONS, WE WILL ACCOMMODATE TO ASSIST WITH THE BEST TRANSITION POSSIBLE. DTRs AGREED TO VIEW THE SNFs ON-LINE AND/OR IN PERSON TODAY AND TOMORROW; AND, CM WILL F/UP WITH FAMILY TOMORROW AND ON TUESDAY WITH DC RECOMMENDATIONS PER MD.
[2018-05-26 16:50] VITALS: BP_SYST 122
--- NOTE | 2018-05-26 17:43 | NUR ---
Pain Management/Medication pt complaint of pain 02/07 to abdomen, pt and family educated on use and side effects of PRN pain medication, pt and pts family verbalized understanding, pt tolerated medication administration well, no acute distress noted, fall and aspiration precautions in place.
--- NOTE | 2018-05-26 19:15 | NUR ---
OPENING NOTES Late entry due to patient care. Bedside report received from day shift nurse. Patient received lying in bed, resting, states that pain is tolerable at this time. No s/s of acute distress, breathing is even and unlabored. Abdominal dressings intact, no signs of bleeding or drainage noted, TASIA drain attached. Dressing on right lower extremity intact, clean and dry, no signs of drainage or active bleeding. IVF infusing well, IV site shows no signs of infiltration or infection. SCDs attached and operating. HOB raised. Call light with patient, instructed to call for any assistance, patient verbalize understanding. Patient's daughter present at bedside. Bed alarm is on. Bed is locked and at lowest position. Will continue to monitor.
--- NOTE | 2018-05-26 19:15 | NUR ---
Closing Note pt resting in bed, A&Ox4, respirations even and unlabored on room air, pt reports pain is controlled at this time, no acute distress noted, IV site clean, dry, intact, and infusing well, surgical dressing to abdomen clean, dry, and intact, TASIA drain to right abdomen intact, seo catheter draining to gravity, SCDs in place, dressing to right leg wound in place, pt educated on use of call light and asked to call for assistance, pt verbalized understanding, call light in reach, bed in low position, bed alarm on, fall and aspiration precautions in place, care endorsed to Christine ROGEL.
[2018-05-26 20:00] VITALS: BP_SYST 103
--- NOTE | 2018-05-26 21:00 | NUR ---
MED PASS Med pass conducted at this time. Patient was able to swallow medications. No signs of discomfort noted. Chest rise and fall even bilaterally. IVF infusing well. SCDs attached and operating. Call light with patient. HOB raised. Bed alarm on. Bed locked and at lowest position. Three side rails up. Will continue to monitor. Addendum: 05/27/18 at 0401 by Almas Shields RN ADDITIONAL - IS EDUCATION Patient was education on proper use of IS, patient was able to demonstrate proper use, was able to reach 1500. Patient encouraged to repeat 10 times per hour when awake.
--- NOTE | 2018-05-26 23:00 | NUR ---
ROUNDS Patient in bed sleeping at this time. No s/s of acute distress. Breathing even and unlabored. Call light with patient. Bed alarm on. Will continue to monitor.
[2018-05-27 00:21] VITALS: BP_SYST 119
--- NOTE | 2018-05-27 01:00 | NUR ---
RT AT BEDSIDE RT at bedside giving breathing treatment at this time. Patient shows no signs of discomfort. Chest rise and fall even bilaterally. Call light with patient. Bed alarm on. Will continue to monitor.
[2018-05-27] MEDS: ALBUTEROL SULFATE 0.083% 2.5 MG/3 ML VIAL.NEB INH SCH ×4 (01:02→19:56)
[2018-05-27] MEDS: IPRATROPIUM BROM 0.5 MG/2.5 ML VIAL.NEB (ATROVENT) INH SCH ×4 (01:02→19:57)
--- NOTE | 2018-05-27 03:00 | NUR ---
ROUNDS Patient sleeping at this time. No s/s of acute distress noted. Chest rise and fall even bilaterally. IVF infusing well. SCDs attached. Shaw attached, secured, and draining by gravity. Call light with patient. Bed alarm on. Will continue to monitor.
[2018-05-27] MEDS: MORPHINE 4 MG/ML INJ. SYRINGE IVP PRN ×3 (04:09→14:54)
[2018-05-27] MEDS: D5/0.45 NS 1,000 ML IV SCH ×3 (04:47→21:28)
--- NOTE | 2018-05-27 05:00 | NUR ---
WOUNDCARE Wound care done at this time. Patient tolerated procedure well. Call light with patient. Bed alarm on. Will continue to monitor.
[2018-05-27] MEDS: PIPERACILLIN/TAZO 3.375/DEX-IS 50 ML IV SCH ×4 (05:07→23:22)
[2018-05-27 06:41] LABS: EOSINOPHILS % (AUTO) 0.4 % (0.0-4.0); HEMATOCRIT 26.8 % (36-54); HEMOGLOBIN 8.9 g/dL (14.0-18.0); LYMPHOCYTES # (AUTO) 0.6 K/uL (1.0-5.5); LYMPHOCYTES % (AUTO) 5.3 % (20.5-51.5); MEAN CORPUSCULAR HEMOGLOBIN 35 pg (27-31); MEAN CORPUSCULAR HGB CONC 33 % (32-36); MEAN CORPUSCULAR VOLUME 104 fL (79.0-98.0); MONOCYTES # (AUTO) 0.8 K/uL (0.0-1.0); MONOCYTES % (AUTO) 7.3 % (1.7-9.3); PLATELET COUNT (AUTO) 246 K/uL (130-430); RED BLOOD CELL COUNT(AUTO) 2.57 MIL/uL (4.2-6.2); RED CELL DISTRIBUTION WIDTH 16.7 % (9.0-15.0); WHITE BLOOD COUNT (AUTO) 11.4 K/uL (4.8-10.8)
[2018-05-27 06:45] LABS: ALANINE AMINOTRANSFERASE 47 U/L (12-78); ALBUMIN 1.5 g/dL (3.4-4.8); ANION GAP 8 (5-15); ASPARTATE AMINOTRANSFERASE 40 U/L (10-37); CALCIUM 7.6 mg/dL (8.4-11.0); CHLORIDE 106 mmol/L (98-107); CREATININE 1.23 mg/dL (0.55-1.30); GLUCOSE 142 mg/dL (70-99); POTASSIUM 3.3 mmol/L (3.5-5.1); SODIUM SERUM 137 mmol/L (136-145); TOTAL BILIRUBIN 0.8 mg/dL (0.0-1.0); UREA NITROGEN, BLOOD 24 mg/dL (8-21)
--- NOTE | 2018-05-27 07:00 | NUR ---
CLOSING NOTES Patient in bed sleeping at this time. No s/s of acute distress noted. Breathing even and unlabored. IVF infusing well. SCDs attached and operating. Incision dressings and right lower leg wound dressing intact, clean and dry, no signs of drainage or active bleeding. TASIA drain attached. Shaw attached, secured, and draining by gravity. All of patient's needs met throughout shift. Fall and safety precautions maintained throughout shift. Patient care endorsed to oncoming day shift nurse.
--- NOTE | 2018-05-27 07:30 | NUR ---
Opening Note Patient resting in bed, eyes closed, breathing unlabored on room air, symmetrical chest expansion, positioned with HOB elevated and pillow support, family at bedside sleeeping, safety precautions in place, bedside table and call light left within reach, will continue to monitor patient
[2018-05-27] MEDS ORDERED: POTASSIUM CHLORIDE 20 MEQ/PKT PACKET PO ONE (08:45)
[2018-05-27] MEDS: DOCUSATE SODIUM 100 MG CAPSULE PO SCH (10:17)
[2018-05-27] MEDS: HYDROCHLOROTHIAZIDE 25 MG TABLET (HCTZ) PO SCH (10:17)
[2018-05-27] MEDS: POTASSIUM CHLORIDE 20 MEQ TAB.PRT.SR PO SCH ×2 (10:18→21:08)
[2018-05-27] MEDS: TAMSULOSIN HCL 0.4 MG CAP PO SCH (10:18)
[2018-05-27] MEDS: BICALUTAMIDE 50 MG TABLET PO SCH (10:18)
[2018-05-27] MEDS: METHADONE HCL 10 MG TABLET PO SCH ×2 (10:18→21:08)
[2018-05-27] MEDS: ENOXAPARIN SODIUM 40 MG/0.4 ML SYRINGE SUBCUT SCH (10:22)
[2018-05-27 10:36] VITALS: BP_SYST 118
--- NOTE | 2018-05-27 10:38 | NUR ---
Medication Administration patient resting in bed, HOB elevated, he was educated regarding meds, verbalized understanding, tolerated well by mouth, pain meds administered per protocol, IV site patent and running fluids, seo draining via gravity, educated patient on use of call light for assistance, verbalized understanding, safety precautions in place, NPO status until ultrasound performed, bedside table and call light left within reach, will continue to monitor
[2018-05-27 11:34] VITALS: BP_SYST 100
--- NOTE | 2018-05-27 12:15 | NUR ---
Patient Resting in Bed HOB elevated, family at bedside, IV fluids infusing, site patent, no needs at this time, educated patient on use of call light for assistance, verbalized understanding, call light and bedside table left within reach, will continue to monitor patient
--- NOTE | 2018-05-27 12:30 | NUR ---
Patient's IV Dislodged at this time, patient attempts to move right hand when family is not at bedside, attempted to reorient patient but was unsuccessful, will attempt to reinsert again shortly, safety and isolation precautions remain in place, will continue to monitor Addendum: 05/27/18 at 1648 by Telma Ocampo RN Disregard wrong patient
[2018-05-27] MEDS: VANCOMYCIN HCL 1,750 MG in NS 500 ML IV SCH (14:51)
--- NOTE | 2018-05-27 14:51 | NUR ---
Vancomycin administered late due medication unavailable, IV site remains patent, family at bedside, HOB elevated, positioned with pillow support, educated patient on use of call light for assistance, verbalized understanding, call light and bedside table left within reach, will continue to monitor patient
[2018-05-27 15:24] VITALS: BP_SYST 126
--- NOTE | 2018-05-27 16:26 | NUR ---
PAGED PAGED DIMA YOUSSEF AT [phone] SPOKE WITH ROSSY.
--- NOTE | 2018-05-27 16:40 | NUR ---
Incentive Spirometer Teaching/Post-op Teaching at this time, educated him regarding use, verbalized understanding, was able to reach 1000 mL, educated him on importance of use and frequency, verbalized understanding, also educated him on importance of moving in order to pass gas, verbalized understanding, will request for stronger pain med because patient is still complaining of pain
--- NOTE | 2018-05-27 17:14 | NUR ---
MD ESPINOSA CALLED [facility] AT SPOKE WITH DR.REDDY ELLISON MALLU SALES ACCOUNT LEADER.
--- NOTE | 2018-05-27 18:05 | NUR ---
Antibiotics hung at this time, educated patient and family regarding med, verbalized understanding, site remains patent, HOB elevated, no signs of respiratory distress, educated patient on use of call light for assistance, verbalized understanding, safety precautions in place, bedside take and call light left within reach, will continue to monitor
--- NOTE | 2018-05-27 18:28 | NUR ---
Spoke with Dr. Guillen at this time, informed him about patient's gas pain, placed orders for simethicon, will implement
--- NOTE | 2018-05-27 18:55 | NUR ---
Closing Note patient resting in bed, family at bedside, no signs of distress, HOB elevated, IV fluids infusing at this time, site patent, seo draining via gravity, safety precautions in place, call light and bedside table left within reach, will endorse to slot shift supervisor nurse
--- NOTE | 2018-05-27 19:15 | NUR ---
OPENING NOTES Late entry due to patient care. Bedside report received from day shift nurse. Patient received lying in bed, resting, AOx4, denies pain at this time. HOB raised. Breathing even and unlabored, no s/s of acute distress noted. IVF infusing well, IV site shows no signs of infiltration or infection. TASIA drain intact. Shaw attached, secured, and draining by gravity. Abdominal dressings intact, clean and dry. Wound dressing on right lower extremity intact, clean and dry. SCDs attached and operating. Feet elevated with pillows. Three side rails up. Call light with patient, instructed to call for any assistance, patient verbalized understanding. Patient's daughter, Faye, at bedside. Bed alarm on. Bed is locked and at lowest position. Will continue to monitor.
[2018-05-27] MEDS: SIMETHICONE 80 MG TAB.CHEW PO PRN (19:36)
[2018-05-27 20:00] VITALS: BP_SYST 128
--- NOTE | 2018-05-27 21:00 | NUR ---
ROUNDS Patient in bed sleeping at this time. No s/s of acute distress noted. HOB raised. Breathing even and unlabored. IVF infusing well. Shaw attached, secured and draining by gravity. Call light with patient. SCDs attached and operating. Faye, patient's daughter, present at bedside. Bed alarm on. Will continue to monitor.
--- NOTE | 2018-05-27 23:00 | NUR ---
IV ANTIBIOTICS IV antibiotics hung at this time. IV site is patent, no signs of infiltration or infection. All needs met at this time. Will continue to monitor.
[2018-05-28 00:49] VITALS: BP_SYST 139
--- NOTE | 2018-05-28 01:00 | NUR ---
ROUNDS Patient in bed sleeping comfortably. No signs of discomfort noted. Chest rise and fall even bilaterally. Call light with patient. Bed alarm on. Will continue to monitor.
[2018-05-28] MEDS: IPRATROPIUM BROM 0.5 MG/2.5 ML VIAL.NEB (ATROVENT) INH SCH ×4 (01:07→20:05)
[2018-05-28] MEDS: ALBUTEROL SULFATE 0.083% 2.5 MG/3 ML VIAL.NEB INH SCH ×4 (01:07→20:04)
[2018-05-28] MEDS: MORPHINE 4 MG/ML INJ. SYRINGE IVP PRN ×2 (02:16→18:41)
--- NOTE | 2018-05-28 02:16 | NUR ---
PAIN Patient complained of pain. PRN medication to be administered. Will continue to monitor and reassess.
[2018-05-28] MEDS: SIMETHICONE 80 MG TAB.CHEW PO PRN (03:32)
--- NOTE | 2018-05-28 04:00 | NUR ---
WOUND CARE Wound care conducted at this time. Patient tolerated activity well. No signs of discomfort noted. Chest rise and fall even bilaterally. Call light with patient. Bed alarm on. HOB raised. Will continue to monitor.
[2018-05-28] MEDS: PIPERACILLIN/TAZO 3.375/DEX-IS 50 ML IV SCH ×3 (05:18→17:39)
--- NOTE | 2018-05-28 05:18 | NUR ---
IV ANTIBIOTICS Patient in bed resting at this time. IV antibiotics hung, infusing well, IV site shows no signs of infiltration or infection. Patient shows no signs of discomfort. Chest rise and fall even bilaterally. Call light with patient. Bed alarm on. Will continue to monitor.
[2018-05-28 05:39] LABS: BASOPHILS % (AUTO) 0.1 % (0.0-2.0); EOSINOPHILS # (AUTO) 0.2 K/uL (0.0-0.4); EOSINOPHILS % (AUTO) 1.6 % (0.0-4.0); HEMATOCRIT 27.5 % (36-54); HEMOGLOBIN 9.5 g/dL (14.0-18.0); LYMPHOCYTES # (AUTO) 0.7 K/uL (1.0-5.5); MEAN CORPUSCULAR HEMOGLOBIN 35 pg (27-31); MEAN CORPUSCULAR HGB CONC 34 % (32-36); MEAN CORPUSCULAR VOLUME 103 fL (79.0-98.0); MONOCYTES # (AUTO) 0.8 K/uL (0.0-1.0); MONOCYTES % (AUTO) 7.4 % (1.7-9.3); NEUTROPHILS # (AUTO) 9.5 K/uL (1.8-7.7); NEUTROPHILS % (AUTO) 84.9 % (40.0-70.0); PLATELET COUNT (AUTO) 302 K/uL (130-430); RED BLOOD CELL COUNT(AUTO) 2.68 MIL/uL (4.2-6.2); RED CELL DISTRIBUTION WIDTH 16.1 % (9.0-15.0); WHITE BLOOD COUNT (AUTO) 11.2 K/uL (4.8-10.8)
[2018-05-28 06:05] LABS: ALANINE AMINOTRANSFERASE 63 U/L (12-78); ALBUMIN 1.5 g/dL (3.4-4.8); ANION GAP 7 (5-15); ASPARTATE AMINOTRANSFERASE 48 U/L (10-37); CALCIUM 8.1 mg/dL (8.4-11.0); CHLORIDE 105 mmol/L (98-107); CREATININE 1.05 mg/dL (0.55-1.30); GLUCOSE 137 mg/dL (70-99); POTASSIUM 3.6 mmol/L (3.5-5.1); SODIUM SERUM 135 mmol/L (136-145); TOTAL BILIRUBIN 0.7 mg/dL (0.0-1.0); UREA NITROGEN, BLOOD 20 mg/dL (8-21)
--- NOTE | 2018-05-28 06:42 | NUR ---
CLOSING NOTES Patient in bed sleeping at this time. Patient's daughter is present at bedside. Patient shows no s/s of acute distress. Breathing is even and unlabored. HOB raised. IVF infusing well, IV site shows no signs of infiltration or infection. Abdominal dressing intact, clean and dry. TASIA drain intact. Shaw attached, secured, and draining by gravity. SCDs attached and operating. All needs met throughout shift. Fall and safety precautions maintained throughout shift. Will continue to monitor until patient care is endorsed to oncoming day shift nurse.
[2018-05-28 08:00] VITALS: BP_SYST 144
--- NOTE | 2018-05-28 08:00 | NUR ---
Opening Note Report received from [facility] shift nurse. Patient is currently resting in bed. S/p day #3, patient has a lap choly. Three abdominal incisions are dry and intact. Right TASIA drain is draining sanguineous drainage. Shaw cath is draining yellow clear urine. Call light is within reach and bed is in low position. Will continue to monitor.
[2018-05-28] MEDS ORDERED: NA PHOS,M-B/NA PHOS,DI-BA 118 ML (FLEET ENEMA) RC ONE (09:15)
[2018-05-28] MEDS: HYDROCHLOROTHIAZIDE 25 MG TABLET (HCTZ) PO SCH (09:25)
[2018-05-28] MEDS: TAMSULOSIN HCL 0.4 MG CAP PO SCH (09:25)
[2018-05-28] MEDS: POTASSIUM CHLORIDE 20 MEQ TAB.PRT.SR PO SCH ×2 (09:25→21:51)
[2018-05-28] MEDS: ENOXAPARIN SODIUM 40 MG/0.4 ML SYRINGE SUBCUT SCH (09:25)
[2018-05-28] MEDS: DOCUSATE SODIUM 100 MG CAPSULE PO SCH (09:26)
[2018-05-28] MEDS: METHADONE HCL 10 MG TABLET PO SCH ×2 (09:26→21:51)
[2018-05-28] MEDS: BICALUTAMIDE 50 MG TABLET PO SCH (09:34)
[2018-05-28] MEDS: VANCOMYCIN HCL 1,750 MG in NS 500 ML IV SCH (09:35)
--- NOTE | 2018-05-28 10:12 | NUR ---
Rounds Patient vomited once. he was cleaned and turned. Tolerated well.
[2018-05-28 11:21] VITALS: BP_SYST 134
--- NOTE | 2018-05-28 12:38 | NUR ---
Rounds Patient is currently sleeping in bed. Call light is within reach.
--- NOTE | 2018-05-28 14:30 | NUR ---
CM DC PLANNING: REC'd CALL FROM Pt's DTR/ANDRES MONTES TO INFORM OF TOUR OF [facility] SNF, FAMILY AGREEMENT FOR Pt TO TRANSFER THERE PER MD RECOMMENDATIONS, OK'd AMBULANCE IF COVERED BY SECONDARY INS, &, CHOICE IS DUE TO HER UNDERSTANDING FROM DR. PATEL THAT HE WILL FOLLOW Pt AT THIS SNF, WELL THIS IS DR. NICOLE's PREFERENCE. REFERRAL FAXED TO [facility]: [phone] AFTER DISCUSSION WITH ADMIT INTAKE/HETAL: [phone]. NOTED THAT SURGERY C/S RETURNED WITH ORGANISM KLEBSIELA SENSITIVE TO ZOSYN WHICH Pt IS NOW ON Q 6 HOURS WHICH IS REASON FOR SNF, WELL , REHAB FOR STRENGTHENING AND RETURN TO PRE-HOSPITAL CONDITION. RN/VIVIAN UPDATED REGARDING POC. RN/VIVIAN TO FOLLOW-UP WITH DR. PATEL TO UPDATE THAT SURGERY CULTURE IS BACK; AND, VIVIAN TO DISCUSS WITH MD ABOUT TRANSITIONING Pt TO PO NORCO FOR PAIN CONTROL. Pt NEEDING TO HAVE BM, BUT PER RN/VIVIAN, Pt HAS BEEN REFUSING FLEET ENEMA.
--- NOTE | 2018-05-28 14:38 | NUR ---
Rounds Patient is resting in bed. Call light is within reach. Family is at the bedside.
[2018-05-28 15:23] VITALS: BP_SYST 132
--- NOTE | 2018-05-28 16:39 | NUR ---
Rounds/enema Administer an enema per MD order.
--- NOTE | 2018-05-28 17:06 | NUR ---
Nutrition F/U Admitting Diagnosis COPD Reviewed Pertinent Medical/Surgical Hx Medical Record Patient Daughter Medical History Comment: PMH: prostate CA, osteoarthritis, chronic pain per MD notes Pt also found w. bilateral infected decubitus ulcers and wounds 05/25/18 Sx: laparoscopic cholecystectomy w/ lysis of adhesions and subhepatic drainage placement Subjective Information Pt seen resting in bed at time of RD visit. Daughter at bedside. Evidence of lunch tray untouched at bedside. Per daughter, pt ate at breakfast, but had vomited afterwards. Pt's pain meds were adjusted yesterday per daughter as pt was in a lot of pain. RD encouraged pt's daughter to offer Ensure Enlive to pt once he is up for eating again as it will provide a good amount of calories/protein for small volume. Pt is not yet meeting optimal nutritional needs, but current diet remains appropriate. Current Diet Order/Nutrition Support Full liquid x2 days Patient/Significant Other Able To Verbalize Education Provided Not Indicated Pertinent Medications mylicon, vancomycin/NaCl IV, D5%/NaCl IV, k-dur, piperacillin/tazobactam IV Pertinent Labs Na 135 L, K 3.6 WNL (improved), BG 137 H, ALB 1.5 L, WBC 11.2 H, H/H 9.5 L/27.5 L Height (Feet) 5 feet Height (Inches) 9.00 inches Weight (Pounds) 200 pounds (05/24/18) Weight (Calculated Kilograms) 90.941142 kilograms Patient Weight 90.718 kg Body Mass Index 29.53 kg/m2 Usual Weight 225 lbs %UBW 89 %IBW 125 [place]/Adjusted Body Weight IBW: 160 lb, 73 kg. Adj IBW (obesity): 170 lb, 77 kg Recent Weight Change Yes - possible 25 lb wt loss within past 3 years; d/t lack of appetite per family Weight Status Overweight Gastrointestinal Symptoms None Food Allergies No Usual Diet At Home Generally low-sodium/soft diet Skin Integrity Comment: Bradne scale: 18; per Cloth Designer note . Right posterior calf: Wound, present on admission. 2. Right posterior calf, superior to wound 1: Wound, present on admission. 3. Right anterior murillo: Wound, present on admission. 4. Right anterior murillo, inferior to wound 3: Wound, present on admission. 5. Right anterior murillo, lateral to wound 3: Wound, present on admission. 6. Right lateral lower extremity: Wound, present on admission. Edema to bilateral le+ non-pitting Current % PO Negligible -- 6% average x6 meals Estimated Energy Expenditure (kcals/day) 3434-5895 kcal/day (30-35 kcal/kg CBW for wound healing, CA) Estimated Protein Required (g/day) 109-137 gm/day (1.2-1.5 gm/kg CBW for wound healing, CA) Estimated Fluid Required (l/day) 2.7 L/day (30 ml/kg CBW for wound healing) Problem/Etiology/Signs/Symptoms Increased nutritional needs related to catabolic illness as evidenced by estimated nutritional requirements for CA. *ongoing Expected Outcomes/Goals - Monitor appetite and PO intakes w/ goal of pt meeting at least 75% of estimated nutritional needs, labs trending WNL, normal GI function, and skin integrity/wt maintenance Dietitian Recommendations * Recommend continuing full liquid diet per MD (oral supplement Ensure Enlive TID comes standard w/ full liquid diet order) * Consider advance to mechanical soft diet w/ Ensure Enlive TID (oral supplement provides an additional 1050 kcal/day and 60 gm protein/day) Follow Up High Risk: F/U in 2-3 days
--- NOTE | 2018-05-28 17:16 | NUR ---
Dietitian Recommendations * Recommend continuing full liquid diet per MD (oral supplement Ensure Enlive TID comes standard w/ full liquid diet order) * Consider advance to mechanical soft diet w/ Ensure Enlive TID (oral supplement provides an additional 1050 kcal/day and 60 gm protein/day) LP, RD Please refer to Nutrition F/U for details.
[2018-05-28] MEDS: D5/0.45 NS 1,000 ML IV SCH (17:38)
[2018-05-28 17:51] VITALS: BP_SYST 132
--- NOTE | 2018-05-28 18:46 | NUR ---
Closing Note Patient is awake and resting in bed. Family is at the bedside. IV is on the left hand 22g running D51/2NS@75. Abdominal incisions are dry and intact. Right TASIA drain is in place. Shaw cath is draining yellow urine. Call light is within reach and bed is in low position. Will endorse care to the oncoming nurse.
--- NOTE | 2018-05-28 19:05 | NUR ---
OPENING NOTE RECEIVED ENDORSEMENT REPORT FROM DAY SHIFT NURSE VIVIAN AT BEDSIDE. PT IS AOX2-3, RESTING IN BED WITH EYES OPEN. FAMILY AT BEDSIDE. PT'S CHEST RISE EVEN AND UNLABORED. NO SOB NOTED, NO DISTRESS NOTED. PT DENIED PAIN AT THIS TIME. PT IS ON RA AND TOLERATING WELL. PT'S IV ON THE LEFT HAND, IVF INFUSING WELL. IV IS DRY, CLEAN AND INTACT. SKIN CLEAN, DRY AND INTACT ON INITIAL ASSESSMENT. PT'S ABD DRESSINGS CLEAN, DRY AND INTACT. DRESSINGS, ORIGINAL SURGICAL DRESSINGS. TASIA DRAIN CLEAN AND INTACT. DRAINING TO GRAVITY. RLE DRESSING CLEAN DRY AND INTACT. PT ORIENTED TO HOSPITAL ROOM. PT INSTRUCTED HOW TO USE CALL LIGHT AND ROOM PHONE, PT INSTRUCTED TO CALL FOR ASSISTANCE AT ALL TIMES. PT VERBALIZED UNDERSTANDING. PT EDUCATED ON SAFETY, PTY VERBALIZED UNDERSTANDING. SAFETY MEASURES IN PLACE. CALL LIGHT/ ROOM PHONE WITHIN REACH, BED ALARM ON, BED WHEELS LOCKED, BED IN LOWEST POSITION, BED RAILS UP X 3. NO NEEDS AT THIS TIME. WILL CONTINUE TO MONITOR PT AND CONTINUE POC.
[2018-05-28 19:57] VITALS: BP_SYST 139
[2018-05-28] MEDS: HYDROcodone/ACETAMIN 5-325 MG TAB (NORCO/ VICODIN) PO PRN (20:09)
--- NOTE | 2018-05-28 20:13 | NUR ---
RN ROUNDS PT RESTING IN BED WITH EYES OPEN. CHEST RISE EVEN AND UNLABORED. NO SOB NOTED, NO DISTRESS NOTED. PT'S FAMILY AT BEDSIDE. VITAL SIGNS WNL. PT REPORTS 6/10 RIGHT LEG PAIN,PRN NORCO ADMINISTERED ORDERED FOR PAIN. PT TOLERATED WELL. WILL MONITOR MEDICATION EFFECTIVENESS. SAFETY MEASURES IN PLACE. CALL LIGHT/ ROOM PHONE WITHIN REACH, BED ALARM ON, BED WHEELS LOCKED, BED IN LOWEST POSITION, BED RAILS UP X 3. NO NEEDS AT THIS TIME. WILL CONTINUE TO MONITOR PT AND CONTINUE POC.
--- NOTE | 2018-05-28 21:35 | NUR ---
RN ROUNDS PT RESTING IN BED WITH EYES OPEN. CHEST RISE EVEN AND UNLABORED. NO SOB NOTED, NO DISTRESS NOTED. FAMILY AT BEDSIDE. PT DENIED PAIN AT THIS TIME. SCHEDULED MEDICATIONS ADMINISTERED ORDERED. PT TOLERATED WELL. NO TOHER NEEDS AT THIS TIME. SAFETY MEASURES IN PLACE. CALL LIGHT/ ROOM PHONE WITHIN REACH, BED ALARM ON, BED WHEELS LOCKED, BED IN LOWEST POSITION, BED RAILS UP X 3. WILL CONTINUE TO MONITOR PT AND CONTINUE POC.
[2018-05-29] VITALS: BP_SYST 144
[2018-05-29] MEDS: PIPERACILLIN/TAZO 3.375/DEX-IS 50 ML IV SCH ×3 (00:26→12:30)
--- NOTE | 2018-05-29 00:30 | NUR ---
RN ROUNDS PT RESTING IN BED WITH EYES OPEN. CHEST RISE EVEN AND UNLABORED. NO SOB NOTED, NO DISTRESS NOTED. PT DENIED PAIN AT THIS TIME. PT IS ON RA AND TOLERATING WELL. IVF INFUSING WELL. SCHEDULED ZOSYN ADMINISTERED ORDERED AT ORDERED RATE. IVF CONTINUE TO INFUSE WELL. NO OTHER NEEDS AT THIS TIME. SAFETY MEASURES IN PLACE. WILL CONTINUE TO MONITOR PT AND CONTINUE POC.
[2018-05-29] MEDS: ALBUTEROL SULFATE 0.083% 2.5 MG/3 ML VIAL.NEB INH SCH ×3 (00:45→13:25)
[2018-05-29] MEDS: IPRATROPIUM BROM 0.5 MG/2.5 ML VIAL.NEB (ATROVENT) INH SCH ×3 (00:45→13:25)
--- NOTE | 2018-05-29 01:40 | NUR ---
RN ROUNDS PT RESTING IN BED WITH EYES CLOSED. CHEST RISE EVEN AND UNLABORED. NO SOB NOTED, NO DISTRESS NOTED.NO S/S OF PAIN AT THIS TIME. SAFETY MEASURES IN PLACE. CALL LIGHT/ ROOM PHONE WITHIN REACH, BED ALARM ON, BED WHEELS LOCKED, BED IN LOWEST POSITION, BED RAILS UP X 3. NO NEEDS AT THIS TIME. WILL CONTINUE TO MONITOR PT AND CONTINUE POC.
--- NOTE | 2018-05-29 03:35 | NUR ---
RN ROUNDS PT RESTING IN BED WITH EYES CLOSED. CHEST RISE EVEN AND UNLABORED. NO SOB NOTED, NO DISTRESS NOTED. SAFETY MEASURES IN PLACE. CALL LIGHT/ ROOM PHONE WITHIN REACH, BED ALARM ON, BED WHEELS LOCKED, BED IN LOWEST POSITION, BED RAILS UP X 3. NO NEEDS AT THIS TIME. WILL CONTINUE TO MONITOR PT AND CONTINUE POC.
--- NOTE | 2018-05-29 05:33 | NUR ---
DTR CALLED PT'S DTR ANDRES CALLED TO ASK HOW FAMILY DID TONIGHT. NOTIFIED PT'S DTR, PT DID WELL AND HAD NO COMPLAINTS OF PAIN.
--- NOTE | 2018-05-29 06:55 | NUR ---
CLOSING NOTE WILL ENDORSE PT REPORT TO DAY SHIFT NURSE AT BEDSIDE. PT IS AOX3, RESTING IN BED WITH EYES CLOSED. CHEST RISE EVEN AND UNLABORED. NO SOB NOTED, NO DISTRESS NOTED. PT'S NEEDS MET THROUGHOUT SHIFT. NO COMPLAINTS OF PAIN THROUGHOUT SHIFT. SAFETY MEASURES IN PLACE THROUGHOUT SHIFT. CALL LIGHT/ ROOM PHONE WITHIN REACH, BED ALARM ON, BED WHEELS LOCKED, BED IN LOWEST POSITION, BED RAILS UP X 3. WILL CONTINUE TO MONITOR PT AND CONTINUE POC UNTIL CARE ENDORSED.
[2018-05-29 07:03] LABS: ANION GAP 10 (5-15); CALCIUM 8.1 mg/dL (8.4-11.0); CHLORIDE 104 mmol/L (98-107); CREATININE 0.91 mg/dL (0.55-1.30); GLUCOSE 123 mg/dL (70-99); POTASSIUM 3.3 mmol/L (3.5-5.1); SODIUM SERUM 137 mmol/L (136-145); UREA NITROGEN, BLOOD 15 mg/dL (8-21)
[2018-05-29 07:14] LABS: ALANINE AMINOTRANSFERASE 55 U/L (12-78); ALBUMIN 1.6 g/dL (3.4-4.8); ASPARTATE AMINOTRANSFERASE 36 U/L (10-37); TOTAL BILIRUBIN 0.7 mg/dL (0.0-1.0)
[2018-05-29 08:00] VITALS: BP_SYST 144; BP_SYST 159
--- NOTE | 2018-05-29 08:00 | NUR ---
initial notes rec patient asleep but arousable to stimuli. ivf infusing well on the l hand. no infiltration noted. hob slightly elevated. resp easy and unlabored. no acute distress noted. bed in low position and side rails up and locked. call light within reached and knows when to call for assistance.
[2018-05-29] MEDS: ENOXAPARIN SODIUM 40 MG/0.4 ML SYRINGE SUBCUT SCH (10:51)
[2018-05-29] MEDS: TAMSULOSIN HCL 0.4 MG CAP PO SCH (10:52)
[2018-05-29] MEDS: DOCUSATE SODIUM 100 MG CAPSULE PO SCH (10:52)
[2018-05-29] MEDS: POTASSIUM CHLORIDE 20 MEQ TAB.PRT.SR PO SCH (10:52)
[2018-05-29] MEDS: D5/0.45 NS 1,000 ML IV SCH (10:53)
[2018-05-29] MEDS: METHADONE HCL 10 MG TABLET PO SCH (10:53)
[2018-05-29] MEDS: BICALUTAMIDE 50 MG TABLET PO SCH (10:55)
[2018-05-29] MEDS: HYDROCHLOROTHIAZIDE 25 MG TABLET (HCTZ) PO SCH (10:55)
[2018-05-29 11:08] VITALS: BP_SYST 156
--- NOTE | 2018-05-29 11:30 | NUR ---
Discharge Planning: [facility] (f [phone] p [phone]) accepted pt room 39B. DCP will follow up when there is a DC order. Addendum: 05/29/18 at 1612 by Linda Richards DP DCP arranged transportation with [facility] ([phone]) machine operator hop picker 4:00pm; nurse to nurse [phone]
--- NOTE | 2018-05-29 13:55 | NUR ---
rounds atwilliam at bedside and took out nuno. no bleeding noted. resting comfortably no sob noted.
--- NOTE | 2018-05-29 14:09 | NUR ---
DC PLANNING Per pt's nurse Jana spoke w Dr Palomino & Dr Ortega, order to DC to SNF. Spoke w pt, dtr Mary & granddtr @ bedside, & informed. Pt & dtr agreeable w dc to [facility] SNF today. Per family transfer @ 1600 is a good time, informed Jana & 1600 ok for milk pickup driver. Informed delmy Mckeon space planner to schedule ambulance milk pickup driver for 1600.
[2018-05-29 14:50] VITALS: BP_SYST 156
[2018-05-29 15:03] VITALS: BP_SYST 146
[2018-05-29] MEDS: HYDROcodone/ACETAMIN 5-325 MG TAB (NORCO/ VICODIN) PO PRN (15:38)
--- NOTE | 2018-05-29 16:00 | NUR ---
rounds report given to tim at [facility]. no acute distress noted.
--- NOTE | 2018-05-29 16:35 | NUR ---
closing notes ambulance came and picker/puller patient. wound care was done on the r lower leg after pic were taken as ordered by wound nurse. no acut editress noted. ivl was flushed, id band was removed and was replaced with a paper id band
== END 2018-05-29 16:35 | DRG 853 ==
LOC: SED 06:17 → STU 08:00 → SMU 05-29 09:08
PROVIDERS: ADMIT Internal Medicine Hospice and Palliative Medicine; ATTEND Internal Medicine Hospice and Palliative Medicine
PROC: 0FT44ZZ Resection of Gallbladder, Percutaneous Endoscopic Approach (ICD-10-PCS; principal; 2018-05-25 12:00)
DX: A41.9 Sepsis, unspecified organism (principal); K85.10 Biliary acute pancreatitis without necrosis or infection; E43 Unspecified severe protein-calorie malnutrition; K65.9 Peritonitis, unspecified; K80.00 Calculus of gallbladder with acute cholecystitis without obstruction; J44.1 Chronic obstructive pulmonary disease with (acute) exacerbation; L97.929 Non-pressure chronic ulcer of unspecified part of left lower leg with unspecified severity; L97.919 Non-pressure chronic ulcer of unspecified part of right lower leg with unspecified severity; L89.90 Pressure ulcer of unspecified site, unspecified stage; Z74.01 Bed confinement status; C61 Malignant neoplasm of prostate; G89.4 Chronic pain syndrome; K57.90 Diverticulosis of intestine, part unspecified, without perforation or abscess without bleeding; E87.6 Hypokalemia; S81.802A Unspecified open wound, left lower leg, initial encounter; S81.801A Unspecified open wound, right lower leg, initial encounter; X58.XXXA Exposure to other specified factors, initial encounter; R74.0 Nonspecific elevation of levels of transaminase and lactic acid dehydrogenase [LDH]; Z96.643 Presence of artificial hip joint, bilateral; K82.8 Other specified diseases of gallbladder; M17.11 Unilateral primary osteoarthritis, right knee; M16.11 Unilateral primary osteoarthritis, right hip; N28.1 Cyst of kidney, acquired; N40.0 Benign prostatic hyperplasia without lower urinary tract symptoms; I73.9 Peripheral vascular disease, unspecified; R06.89 Other abnormalities of breathing; B96.1 Klebsiella pneumoniae [K. pneumoniae] as the cause of diseases classified elsewhere; Z79.891 Long term (current) use of opiate analgesic; Z85.46 Personal history of malignant neoplasm of prostate; Z87.891 Personal history of nicotine dependence; Y93.89 Activity, other specified; Y92.89 Other specified places as the place of occurrence of the external cause; Y99.8 Other external cause status; Z68.33 Body mass index [BMI] 33.0-33.9, adult
CPT/HCPCS: 36415; 36600; 71045; 74181; 76700-TC; 80053; 82803-TC; 83605; 83690-TC; 83735-TC; 83880; 84484; 85025; 85610-TC; 85730-TC; 87040-TC; 87070; 87070-TC; 87075-TC; 87081; 87186-TC; 88304; 90656; 93005; 93306; 93970; 94010; 94640; 94760; 96365; 96366; 96367; 97110-GP; 97530-GP; 99285; C1727; C9399; J0456; J0696; J1650; J2250; J2270; J2405; J2543; J2704; J3010; J3370; J3480; J3490; J7030; J7040; J7042; J7050; J7060; J7120; J7613; Q9964; Q9967

== ENCOUNTER 2019-06-12 17:45 | Inpatient (IN) | payer OTHER, BC ==
[~2019-06-12] VITALS: Ht 175.3 cm; Wt 73.5 kg
[2019-06-12 17:45] VITALS: BP_SYST 141
[~2019-06-12 17:45] MED LIST: CAS50 PO; CEPH-568 PO; DOCU250C75 PO; HYDR-4272 PO; HYDR25TA4 PO; METH5TAB2 PO; TAMS-11 PO
[2019-06-12] MEDS ORDERED: NACL 0.9% 1,000 ML IV ONE (18:00)
[2019-06-12 18:14] LABS: BASOPHILS % (AUTO) 0.3 % (0.0-2.0); EOSINOPHILS # (AUTO) 0.2 K/uL (0.0-0.4); HEMATOCRIT 33.9 % (36-54); HEMOGLOBIN 11.5 g/dL (14.0-18.0); LYMPHOCYTES # (AUTO) 3.8 K/uL (1.0-5.5); LYMPHOCYTES % (AUTO) 25.7 % (20.5-51.5); MEAN CORPUSCULAR HEMOGLOBIN 33 pg (27-31); MEAN CORPUSCULAR HGB CONC 34 % (32-36); MEAN CORPUSCULAR VOLUME 97 fL (79.0-98.0); MONOCYTES # (AUTO) 0.8 K/uL (0.0-1.0); MONOCYTES % (AUTO) 5.7 % (1.7-9.3); NEUTROPHILS % (AUTO) 67.3 % (40.0-70.0); PLATELET COUNT (AUTO) 413 K/uL (130-430); RED BLOOD CELL COUNT(AUTO) 3.51 MIL/uL (4.2-6.2); RED CELL DISTRIBUTION WIDTH 18.9 % (9.0-15.0); WHITE BLOOD COUNT (AUTO) 14.8 K/uL (4.8-10.8)
[2019-06-12] MEDS ORDERED: KETOROLAC TROMETHAMINE 15 MG VIAL IVP ONE (18:30)
[2019-06-12 18:33] LABS: ANION GAP 12 (5-15); CALCIUM 8.6 mg/dL (8.4-11.0); CHLORIDE 103 mmol/L (98-107); CREATININE 2.88 mg/dL (0.55-1.30); GLUCOSE 99 mg/dL (70-99); POTASSIUM 4.4 mmol/L (3.5-5.1); SODIUM SERUM 136 mmol/L (136-145); UREA NITROGEN, BLOOD 62 mg/dL (8-21)
[2019-06-12 18:48] LABS: ALANINE AMINOTRANSFERASE 13 U/L (12-78); ALBUMIN 2.1 g/dL (3.4-4.8); ASPARTATE AMINOTRANSFERASE 26 U/L (10-37); TOTAL BILIRUBIN 0.4 mg/dL (0.0-1.0)
[2019-06-12 18:56] LABS: BILIRUBIN,URINE 1+ (NEGATIVE); BLOOD, URINE 2+ (NEGATIVE); CLARITY/URINE SL CLOUDY (CLEAR); COLOR,URINE YELLOW (YELLOW); GLUCOSE,URINE NEGATIVE (NEGATIVE); KETONES,URINE TRACE (NEGATIVE); LEUKOCYTE ESTERASE ,URINE 3+ (NEGATIVE); NITRITE, URINE NEGATIVE (NEGATIVE); PH,URINE 5.5 (5.0-8.0); PROTEIN URINE NEGATIVE (NEGATIVE); UROBILINOGEN,URINE 0.2 (0.2-1.0)
[2019-06-12] MEDS ORDERED: cefTRIAXone 1 GM IVPB PREMIX 50 ML IV ONE (19:00)
[2019-06-12 19:06] LABS: BARBITURATE, URINE NEGATIVE (NEG <=200); BENZODIAZEPINE, URINE POSITIVE (NEG <=150); CANNABINOID, URINE NEGATIVE (NEG <=50); COCAINE, URINE NEGATIVE (NEG <=150); METHAMPHETAMINES SCREEN,URINE NEGATIVE (NEG <=500); OPIATE, URINE POSITIVE (NEG <=100); PHENCYCLIDINE SCREEN,URINE NEGATIVE (NEG <=25); URINE AMPHETAMINE NEGATIVE (NEG <=500)
[2019-06-12 19:07] LABS: UR TRICYCLIC ANTIDEPRESSANTS NEGATIVE (NEG <=300); URINE METHADONE POSITIVE (NEG <=200); URINE OXYCODONE SCREEN NEGATIVE (NEG <=100); URINE PROPOXYPHENE SCREEN NEGATIVE (NEG <=300)
[2019-06-12 19:17] LABS: WBC,URINE 20-50 /HPF (0-3)
[2019-06-12 19:18] LABS: BACTERIA,URINE MODERATE /HPF (None Seen)
[2019-06-12 19:19] LABS: FINE GRANULAR CASTS,URINE 0-10 /LPF (None Seen); MUCUS,URINE None Seen /LPF (None Seen); URINE AMORPHOUS URATE 2+ /HPF (None Seen)
[2019-06-12] MEDS ORDERED: BACL10TA PO (19:31)
[2019-06-12] MEDS ORDERED: FURO20TA4 PO (19:31)
[2019-06-12] MEDS ORDERED: BISA5TAB10 PO (19:31)
[2019-06-12] MEDS ORDERED: FLUC100T41 PO (19:31)
[2019-06-12] MEDS ORDERED: POTA-80 PO (19:31)
[2019-06-12] MEDS ORDERED: MET10 PO (19:31)
[2019-06-12] MEDS ORDERED: DOCU250C75 PO (19:31)
[2019-06-12] MEDS ORDERED: MORPHINE 2 MG/ML INJ. SYRINGE IVP ONE (22:15)
[2019-06-12] MEDS ORDERED: BACLOFEN 10 MG TABLET PO PRN (22:30)
[2019-06-12] MEDS ORDERED: BISACODYL 5 MG TABLET.DR (DULCOLAX) PO PRN (22:30)
[2019-06-12] MEDS ORDERED: cloNIDine HCL 0.1 MG TABLET PO PRN (22:45)
[2019-06-12 23:10] VITALS: BP_SYST 108
[2019-06-12] MEDS ORDERED: FLU VACC TS2019(65UP)/MF59C/PF 45 MCG/0.5 ML SYRINGE I.M. PRN (23:15)
[2019-06-12] MEDS ORDERED: ONDANSETRON HCL 4 MG/2 ML VIAL IVP PRN (23:30)
[2019-06-12] MEDS ORDERED: ACETAMINOPHEN 325 MG TABLET PO PRN (23:30)
[2019-06-13] MEDS: LEVOFLOXACIN 250 MG/D5W 50 ML IV SCH ×2 (01:07→22:06)
[2019-06-13] MEDS: D5/0.45 NS 1,000 ML IV SCH ×2 (01:07→14:04)
[2019-06-13] MEDS ORDERED: LEVOFLOXACIN 250 MG/D5W 50 ML IV ONE (01:12)
[2019-06-13] MEDS: MORPHINE 2 MG/ML INJ. SYRINGE IVP PRN ×4 (01:33→22:07)
[2019-06-13] MEDS ORDERED: HYDROcodone/ACETAMIN 5-325 MG TAB (NORCO/ VICODIN) PO PRN (07:15)
[2019-06-13 07:18] LABS: BASOPHILS # (AUTO) 0.1 K/uL (0.0-0.2); BASOPHILS % (AUTO) 0.7 % (0.0-2.0); EOSINOPHILS # (AUTO) 0.1 K/uL (0.0-0.4); EOSINOPHILS % (AUTO) 0.6 % (0.0-4.0); LYMPHOCYTES % (AUTO) 23.6 % (20.5-51.5); MEAN CORPUSCULAR HEMOGLOBIN 33 pg (27-31); MEAN CORPUSCULAR HGB CONC 33 % (32-36); MEAN CORPUSCULAR VOLUME 98 fL (79.0-98.0); MONOCYTES # (AUTO) 0.7 K/uL (0.0-1.0); MONOCYTES % (AUTO) 5.6 % (1.7-9.3); NEUTROPHILS # (AUTO) 8.7 K/uL (1.8-7.7); NEUTROPHILS % (AUTO) 69.5 % (40.0-70.0); PLATELET COUNT (AUTO) 343 K/uL (130-430); RED BLOOD CELL COUNT(AUTO) 3.38 MIL/uL (4.2-6.2); RED CELL DISTRIBUTION WIDTH 19.3 % (9.0-15.0); WHITE BLOOD COUNT (AUTO) 12.5 K/uL (4.8-10.8)
[2019-06-13 07:30] LABS: TOTAL IRON BIND. CAPACITY 76 ug/dL (250-450)
[2019-06-13 07:36] LABS: ALANINE AMINOTRANSFERASE 11 U/L (12-78); ALBUMIN 1.8 g/dL (3.4-4.8); ANION GAP 10 (5-15); ASPARTATE AMINOTRANSFERASE 26 U/L (10-37); CALCIUM 8.4 mg/dL (8.4-11.0); CHLORIDE 106 mmol/L (98-107); CREATININE 2.79 mg/dL (0.55-1.30); FREE T4 (FREE THYROXINE) 0.9 ng/dl (0.8-1.5); GLUCOSE 111 mg/dL (70-99); POTASSIUM 4.7 mmol/L (3.5-5.1); SODIUM SERUM 138 mmol/L (136-145); TOTAL BILIRUBIN 0.2 mg/dL (0.0-1.0); UREA NITROGEN, BLOOD 63 mg/dL (8-21)
[2019-06-13 08:00] VITALS: BP_SYST 116
[2019-06-13] MEDS ORDERED: NON-FORMULARY MEDICATION (Tamsulosin Hcl (Flomax) 0.4 MG) PO SCH (09:00)
[2019-06-13] MEDS: BICALUTAMIDE 50 MG TABLET PO SCH (09:00)
[2019-06-13] MEDS: NEPHROVITE, (FOLIC ACID/VITAMIN B COMP W-C 1 TAB) PO SCH (09:02)
[2019-06-13] MEDS: TAMSULOSIN HCL 0.4 MG CAP PO SCH ×2 (09:02→22:06)
[2019-06-13] MEDS: METHADONE HCL 10 MG TABLET PO SCH ×2 (09:03→22:06)
[2019-06-13] MEDS: FLUCONAZOLE 100 MG TABLET (DIFLUCAN) PO SCH (09:03)
[2019-06-13] MEDS: DOCUSATE SODIUM 250 MG CAPSULE PO SCH (09:03)
[2019-06-13 12:56] VITALS: BP_SYST 100
[2019-06-13 15:21] VITALS: BP_SYST 91
[2019-06-13] MEDS ORDERED: QUEtiapine FUMARATE 25 MG TABLET PO SCH (18:00)
[2019-06-13 20:00] VITALS: BP_SYST 117
[2019-06-14 00:27] VITALS: BP_SYST 129
[2019-06-14] MEDS: D5/0.45 NS 1,000 ML IV SCH ×3 (02:44→16:25)
[2019-06-14] MEDS: MORPHINE 2 MG/ML INJ. SYRINGE IVP PRN ×4 (02:49→22:15)
[2019-06-14 08:00] VITALS: BP_SYST 123
[2019-06-14] MEDS: FLUCONAZOLE 100 MG TABLET (DIFLUCAN) PO SCH (08:59)
[2019-06-14] MEDS: DOCUSATE SODIUM 250 MG CAPSULE PO SCH (08:59)
[2019-06-14] MEDS: TAMSULOSIN HCL 0.4 MG CAP PO SCH ×2 (08:59→21:28)
[2019-06-14] MEDS: BICALUTAMIDE 50 MG TABLET PO SCH (08:59)
[2019-06-14] MEDS: NEPHROVITE, (FOLIC ACID/VITAMIN B COMP W-C 1 TAB) PO SCH (08:59)
[2019-06-14] MEDS: METHADONE HCL 10 MG TABLET PO SCH ×2 (09:00→21:28)
[2019-06-14 12:34] VITALS: BP_SYST 103
[2019-06-14 13:40] VITALS: BP_SYST 96
[2019-06-14] MEDS ORDERED: BALSAM PERU/CASTOR OIL 60 GM OINT...G. TP ONE (19:30)
[2019-06-14 20:00] VITALS: BP_SYST 105
[2019-06-14] MEDS: LEVOFLOXACIN 250 MG/D5W 50 ML IV SCH (21:29)
[2019-06-15 00:03] VITALS: BP_SYST 105
[2019-06-15] MEDS: D5/0.45 NS 1,000 ML IV SCH ×2 (00:30→12:14)
[2019-06-15 08:00] VITALS: BP_SYST 109
[2019-06-15] MEDS: BICALUTAMIDE 50 MG TABLET PO SCH (08:16)
[2019-06-15] MEDS: METHADONE HCL 10 MG TABLET PO SCH ×2 (08:17→21:29)
[2019-06-15] MEDS: DOCUSATE SODIUM 250 MG CAPSULE PO SCH (08:17)
[2019-06-15] MEDS: NEPHROVITE, (FOLIC ACID/VITAMIN B COMP W-C 1 TAB) PO SCH (08:17)
[2019-06-15] MEDS: TAMSULOSIN HCL 0.4 MG CAP PO SCH ×2 (08:17→21:31)
[2019-06-15] MEDS: FLUCONAZOLE 100 MG TABLET (DIFLUCAN) PO SCH (08:17)
[2019-06-15] MEDS: BALSAM PERU/CASTOR OIL 60 GM OINT...G. TP SCH (08:29)
[2019-06-15 10:23] LABS: BASOPHILS # (AUTO) 0.1 K/uL (0.0-0.2); BASOPHILS % (AUTO) 0.6 % (0.0-2.0); EOSINOPHILS # (AUTO) 0.3 K/uL (0.0-0.4); HEMATOCRIT 29.4 % (36-54); HEMOGLOBIN 9.8 g/dL (14.0-18.0); LYMPHOCYTES # (AUTO) 2.3 K/uL (1.0-5.5); LYMPHOCYTES % (AUTO) 23.5 % (20.5-51.5); MEAN CORPUSCULAR HEMOGLOBIN 33 pg (27-31); MEAN CORPUSCULAR HGB CONC 33 % (32-36); MEAN CORPUSCULAR VOLUME 97 fL (79.0-98.0); MONOCYTES # (AUTO) 0.7 K/uL (0.0-1.0); MONOCYTES % (AUTO) 7.4 % (1.7-9.3); NEUTROPHILS # (AUTO) 6.4 K/uL (1.8-7.7); PLATELET COUNT (AUTO) 283 K/uL (130-430); RED BLOOD CELL COUNT(AUTO) 3.02 MIL/uL (4.2-6.2); WHITE BLOOD COUNT (AUTO) 9.7 K/uL (4.8-10.8)
[2019-06-15] MEDS ORDERED: CEFAZOLIN 1 GM IVPB PREMIX 50 ML IV ONE (10:30)
[2019-06-15 10:36] LABS: PROTHROMBIN TIME 10.5 SECS (9.5-12.5)
[2019-06-15 10:37] LABS: ANION GAP 8 (5-15); CALCIUM 8.1 mg/dL (8.4-11.0); CHLORIDE 104 mmol/L (98-107); CREATININE 1.67 mg/dL (0.55-1.30); GLUCOSE 109 mg/dL (70-99); POTASSIUM 3.7 mmol/L (3.5-5.1); SODIUM SERUM 132 mmol/L (136-145); UREA NITROGEN, BLOOD 41 mg/dL (8-21)
[2019-06-15 10:42] LABS: ALANINE AMINOTRANSFERASE 18 U/L (12-78); ALBUMIN 1.8 g/dL (3.4-4.8); ASPARTATE AMINOTRANSFERASE 22 U/L (10-37); TOTAL BILIRUBIN 0.3 mg/dL (0.0-1.0)
[2019-06-15 11:11] VITALS: BP_SYST 109
[2019-06-15 11:26] LABS: NEUTROPHILS % (AUTO) 65.5 % (40.0-70.0)
[2019-06-15] MEDS: MORPHINE 2 MG/ML INJ. SYRINGE IVP PRN (12:13)
[2019-06-15 16:09] VITALS: BP_SYST 111
[2019-06-15] MEDS ORDERED: D5NS 500 ML IV ONE (16:45)
[2019-06-15 20:00] VITALS: BP_SYST 102
[2019-06-15] MEDS: LEVOFLOXACIN 250 MG/D5W 50 ML IV SCH (23:42)
[2019-06-16] MEDS: MORPHINE 2 MG/ML INJ. SYRINGE IVP PRN ×2 (00:57→14:47)
[2019-06-16 01:32] VITALS: BP_SYST 93
[2019-06-16 06:56] LABS: BASOPHILS % (AUTO) 0.3 % (0.0-2.0); EOSINOPHILS # (AUTO) 0.2 K/uL (0.0-0.4); EOSINOPHILS % (AUTO) 2.4 % (0.0-4.0); HEMATOCRIT 28.2 % (36-54); HEMOGLOBIN 9.6 g/dL (14.0-18.0); LYMPHOCYTES # (AUTO) 2.5 K/uL (1.0-5.5); LYMPHOCYTES % (AUTO) 25.5 % (20.5-51.5); MEAN CORPUSCULAR HEMOGLOBIN 33 pg (27-31); MEAN CORPUSCULAR HGB CONC 34 % (32-36); MEAN CORPUSCULAR VOLUME 96 fL (79.0-98.0); MONOCYTES # (AUTO) 0.7 K/uL (0.0-1.0); MONOCYTES % (AUTO) 6.9 % (1.7-9.3); NEUTROPHILS # (AUTO) 6.3 K/uL (1.8-7.7); NEUTROPHILS % (AUTO) 64.9 % (40.0-70.0); PLATELET COUNT (AUTO) 205 K/uL (130-430); RED BLOOD CELL COUNT(AUTO) 2.93 MIL/uL (4.2-6.2); RED CELL DISTRIBUTION WIDTH 18.7 % (9.0-15.0); WHITE BLOOD COUNT (AUTO) 9.7 K/uL (4.8-10.8)
[2019-06-16 07:01] LABS: ANION GAP 8 (5-15); CALCIUM 8.1 mg/dL (8.4-11.0); CHLORIDE 104 mmol/L (98-107); CREATININE 1.46 mg/dL (0.55-1.30); GLUCOSE 99 mg/dL (70-99); PHOSPHORUS 2.5 mg/dL (2.7-4.5); POTASSIUM 3.7 mmol/L (3.5-5.1); SODIUM SERUM 132 mmol/L (136-145); UREA NITROGEN, BLOOD 33 mg/dL (8-21)
[2019-06-16 07:17] LABS: PROTHROMBIN TIME 10.4 SECS (9.5-12.5)
[2019-06-16] MEDS ORDERED: MEPERIDINE HCL/PF 100 MG/ML AMP ONE (07:41)
[2019-06-16 08:00] VITALS: BP_SYST 102
[2019-06-16] MEDS ORDERED: CEFAZOLIN 1 GM IVPB PREMIX 50 ML IV ONE (08:00)
[2019-06-16] MEDS: FLUCONAZOLE 100 MG TABLET (DIFLUCAN) PO SCH (09:00)
[2019-06-16] MEDS: NEPHROVITE, (FOLIC ACID/VITAMIN B COMP W-C 1 TAB) PO SCH (09:00)
[2019-06-16] MEDS: TAMSULOSIN HCL 0.4 MG CAP PO SCH ×2 (09:00→22:16)
[2019-06-16] MEDS: METHADONE HCL 10 MG TABLET PO SCH ×2 (09:00→22:16)
[2019-06-16] MEDS: DOCUSATE SODIUM 250 MG CAPSULE PO SCH (09:00)
[2019-06-16] MEDS: BICALUTAMIDE 50 MG TABLET PO SCH (09:00)
[2019-06-16] MEDS: MIDAZOLAM HCL 5 MG/5 ML VIAL ONE ×3 (09:34→09:46)
[2019-06-16 12:25] VITALS: BP_SYST 82
[2019-06-16] MEDS: BALSAM PERU/CASTOR OIL 60 GM OINT...G. TP SCH (15:40)
[2019-06-16 16:00] VITALS: BP_SYST 85
[2019-06-16] MEDS: LEVOFLOXACIN 250 MG/D5W 50 ML IV SCH (23:02)
[2019-06-17] MEDS: MORPHINE 2 MG/ML INJ. SYRINGE IVP PRN ×2 (00:49→17:29)
[2019-06-17 02:42] VITALS: BP_SYST 92
[2019-06-17 08:00] VITALS: BP_SYST 97
[2019-06-17] MEDS: NEPHROVITE, (FOLIC ACID/VITAMIN B COMP W-C 1 TAB) PO SCH (10:25)
[2019-06-17] MEDS: DOCUSATE SODIUM 250 MG CAPSULE PO SCH (10:25)
[2019-06-17] MEDS: FLUCONAZOLE 100 MG TABLET (DIFLUCAN) PO SCH (10:26)
[2019-06-17] MEDS: TAMSULOSIN HCL 0.4 MG CAP PO SCH (10:26)
[2019-06-17] MEDS: BALSAM PERU/CASTOR OIL 60 GM OINT...G. TP SCH (10:29)
[2019-06-17] MEDS: BICALUTAMIDE 50 MG TABLET PO SCH (10:40)
[2019-06-17] MEDS: METHADONE HCL 10 MG TABLET PO SCH (10:40)
[2019-06-17 12:52] VITALS: BP_SYST 102
[2019-06-17 17:58] VITALS: BP_SYST 102
[2019-06-17 18:15] VITALS: BP_SYST 95
[2019-06-20 15:08] LABS: % FREE PSA >30.0 % (.); FREE PSA 0.03 ng/mL; PROSTATE SPECIFIC AG TOTAL <0.1 ng/mL (0.0-4.0)
== END 2019-06-17 18:40 | DRG 871 ==
LOC: SED 17:45 → STU 21:38 → SMU 06-14 23:22
PROVIDERS: ADMIT Internal Medicine; ATTEND Internal Medicine
PROC: 0DH63UZ Insertion of Feeding Device into Stomach, Percutaneous Approach (ICD-10-PCS; principal; 2019-06-16 08:00)
DX: A41.9 Sepsis, unspecified organism (principal); G93.41 Metabolic encephalopathy; N17.0 Acute kidney failure with tubular necrosis; E43 Unspecified severe protein-calorie malnutrition; N39.0 Urinary tract infection, site not specified; Z96.649 Presence of unspecified artificial hip joint; R13.10 Dysphagia, unspecified; R62.7 Adult failure to thrive; M19.90 Unspecified osteoarthritis, unspecified site; J44.9 Chronic obstructive pulmonary disease, unspecified; N18.9 Chronic kidney disease, unspecified; G89.4 Chronic pain syndrome; F03.90 Unspecified dementia, unspecified severity, without behavioral disturbance, psychotic disturbance, mood disturbance, and anxiety; E86.0 Dehydration; D63.8 Anemia in other chronic diseases classified elsewhere; N40.1 Benign prostatic hyperplasia with lower urinary tract symptoms; N13.9 Obstructive and reflux uropathy, unspecified; I45.10 Unspecified right bundle-branch block; I12.9 Hypertensive chronic kidney disease with stage 1 through stage 4 chronic kidney disease, or unspecified chronic kidney disease; B96.1 Klebsiella pneumoniae [K. pneumoniae] as the cause of diseases classified elsewhere; L89.109 Pressure ulcer of unspecified part of back, unspecified stage; L89.319 Pressure ulcer of right buttock, unspecified stage; K29.70 Gastritis, unspecified, without bleeding; Z90.49 Acquired absence of other specified parts of digestive tract; Z85.46 Personal history of malignant neoplasm of prostate; Z68.23 Body mass index [BMI] 23.0-23.9, adult; Z79.899 Other long term (current) drug therapy
CPT/HCPCS: 36415; 43246; 71045; 76770; 80048; 80053; 80307; 81000-TC; 82607; 83540-TC; 83550-TC; 83605; 83735-TC; 84100-TC; 84153; 84439; 84484; 85025; 85610-TC; 85730-TC; 87040-TC; 87070-TC; 87081; 87086; 87186-TC; 92610-GN; 93005; 97110-GP; 97530-GP; G0378; J0690; J0696; J1885; J1956; J2175; J2250; J2270; J2405; J7030; J7042

== ENCOUNTER 2019-07-14 09:34 | Inpatient (IN) | payer OTHER, BC ==
[~2019-07-14] VITALS: Ht 175.3 cm; Wt 77.6 kg
[~2019-07-14 09:34] MED LIST changes: +BACL10TA PO; +BISA5TAB10 PO; -CEPH-568 PO; +FLUC100T41 PO; +FURO20TA4 PO; +MET10 PO; -METH5TAB2 PO; +POTA-80 PO
[2019-07-14 09:45] VITALS: BP_SYST 118
--- NOTE | 2019-07-14 10:14 | NUR ---
Patient to ER bed 2 to gown for evaluation. Side rails up. Report given to JIAN ROGEL.
--- NOTE | 2019-07-14 10:17 | NUR ---
Patient brought in by ambulance from [place]. Daughter is at bedside. Per daughter patient she doesn't know if the cough started yesterday and does not know if he has coughed anything up. Patient has ronchi bilaterally and cough. Bandage to bilateral legs, hips and sacrum are clean, dry, and intact. Shaw catheter is intact and draining. Patient visually tracks and is non-verbal.
--- NOTE | 2019-07-14 10:23 | NUR ---
Medication reconciliation completed with information provided by [employer]. Any prior medication reconciliation on file was reviewed and corrected.
--- NOTE | 2019-07-14 10:31 | NUR ---
X-ray at bedside.
[2019-07-14 10:46] LABS: BASOPHILS % (AUTO) 0.3 % (0.0-2.0); EOSINOPHILS # (AUTO) 0.4 K/uL (0.0-0.4); EOSINOPHILS % (AUTO) 2.8 % (0.0-4.0); LYMPHOCYTES # (AUTO) 1.9 K/uL (1.0-5.5); LYMPHOCYTES % (AUTO) 13.5 % (20.5-51.5); MEAN CORPUSCULAR HEMOGLOBIN 33 pg (27-31); MEAN CORPUSCULAR HGB CONC 33 % (32-36); MEAN CORPUSCULAR VOLUME 98 fL (79.0-98.0); MONOCYTES # (AUTO) 0.9 K/uL (0.0-1.0); MONOCYTES % (AUTO) 6.5 % (1.7-9.3); NEUTROPHILS # (AUTO) 10.7 K/uL (1.8-7.7); NEUTROPHILS % (AUTO) 76.9 % (40.0-70.0); PLATELET COUNT (AUTO) 267 K/uL (130-430); RED BLOOD CELL COUNT(AUTO) 2.11 MIL/uL (4.2-6.2); RED CELL DISTRIBUTION WIDTH 16.8 % (9.0-15.0); WHITE BLOOD COUNT (AUTO) 13.9 K/uL (4.8-10.8)
[2019-07-14 10:57] LABS: HEMATOCRIT 20.6 % (36-54); HEMOGLOBIN 6.9 g/dL (14.0-18.0)
--- NOTE | 2019-07-14 11:07 | NUR ---
2 unsuccessful IV attempts made. PEBBLES Osullivan to attempt.
[2019-07-14 11:10] LABS: PROTHROMBIN TIME 10.2 SECS (9.5-12.5)
[2019-07-14 11:12] LABS: ANION GAP 6 (5-15); CALCIUM 7.8 mg/dL (8.4-11.0); CHLORIDE 106 mmol/L (98-107); CREATININE 1.12 mg/dL (0.55-1.30); GLUCOSE 132 mg/dL (70-99); SODIUM SERUM 140 mmol/L (136-145); UREA NITROGEN, BLOOD 58 mg/dL (8-21)
[2019-07-14 11:23] LABS: ALANINE AMINOTRANSFERASE 15 U/L (12-78); ALBUMIN 1.8 g/dL (3.4-4.8); ALCOHOL, BLOOD < 3 mg/dL (<10); ASPARTATE AMINOTRANSFERASE 18 U/L (10-37); TOTAL BILIRUBIN 0.3 mg/dL (0.0-1.0)
--- NOTE | 2019-07-14 11:29 | NUR ---
# 16 FR Seo catheter with use of sterile technique. Immediate return of 1 cc yello urine noted. Bedside drainage bag placed below level of bladder. Pt tolerated procedure well. Patient arrived with seo in place, changed due to standard of practice prior to admission. Patient unable to toilet self.
[2019-07-14 11:57] LABS: BILIRUBIN,URINE NEGATIVE (NEGATIVE); BLOOD, URINE 3+ (NEGATIVE); CLARITY/URINE CLEAR (CLEAR); COLOR,URINE YELLOW (YELLOW); GLUCOSE,URINE NEGATIVE (NEGATIVE); KETONES,URINE NEGATIVE (NEGATIVE); LEUKOCYTE ESTERASE ,URINE 3+ (NEGATIVE); NITRITE, URINE NEGATIVE (NEGATIVE); PH,URINE 8.5 (5.0-8.0); PROTEIN URINE 1+ (NEGATIVE)
[2019-07-14 12:04] LABS: BACTERIA,URINE MODERATE /HPF (None Seen); RBC,URINE 20-50 /HPF (0-3); WBC,URINE 20-50 /HPF (0-3)
[2019-07-14 12:14] LABS: BARBITURATE, URINE NEGATIVE (NEG <=200); BENZODIAZEPINE, URINE NEGATIVE (NEG <=150); CANNABINOID, URINE NEGATIVE (NEG <=50); COCAINE, URINE NEGATIVE (NEG <=150); METHAMPHETAMINES SCREEN,URINE NEGATIVE (NEG <=500); PHENCYCLIDINE SCREEN,URINE NEGATIVE (NEG <=25); URINE AMPHETAMINE NEGATIVE (NEG <=500); URINE METHADONE NEGATIVE (NEG <=200)
[2019-07-14 12:15] LABS: OPIATE, URINE POSITIVE (NEG <=100); UR TRICYCLIC ANTIDEPRESSANTS NEGATIVE (NEG <=300); URINE OXYCODONE SCREEN NEGATIVE (NEG <=100); URINE PROPOXYPHENE SCREEN NEGATIVE (NEG <=300)
--- NOTE | 2019-07-14 12:50 | NUR ---
Patient's family is requesting pain medication. Dr. Jo made aware.
[2019-07-14] MEDS ORDERED: DIPHENHYDRAMINE INJ 50 MG/ML VIAL IVP ONE (13:00)
[2019-07-14] MEDS ORDERED: MORPHINE 2 MG/ML INJ. SYRINGE IVP ONE (13:00)
[2019-07-14] MEDS ORDERED: cefTRIAXone 1 GM IVPB PREMIX 50 ML IV ONE (13:45)
[2019-07-14] MEDS ORDERED: PANTOPRAZOLE SODIUM 40 MG/VIAL (PROTONIX) IVP ONE ×2 (14:15→17:30)
--- NOTE | 2019-07-14 14:26 | NUR ---
Patient will be admitted to care of Dr. Myles. Admitted to telemetry unit. Will go to room 122A. Belongings list completed. Complete and up to date summary report printed. SBAR report to be given at bedside with opportunity for questions.
[2019-07-14] MEDS: NACL 0.9% 1,000 ML IV SCH (14:30)
--- NOTE | 2019-07-14 14:40 | NUR ---
[facility] Licensed nurse present. IV present no signs or symptoms of infiltration.
--- NOTE | 2019-07-14 14:43 | NUR ---
ADMISSION NOTE Received patient from ER via maximil[facility], received report from Marquise ROGEL. Patient admitted with diagnosis of Sepsis. Patient oriented to hospital routine, call light, toileting and safety-patient verbalized understanding.
--- NOTE | 2019-07-14 15:15 | NUR ---
ADMISSION; RECEIVED PT FROM ER, ASLEEP, AROUSED VIA LIGHT TACTILE STIMULI, DX:RISK FOR INJURY, R/T SEPSIS, VSS, AFEBRILE, BREATH SOUNDS ARE RHONCHI, BREATHING UNLABORED, SATURATING 98% ORA, PT HAS MULTIPLE WOUNDS ON POSTERIOR LEFT HIP AND BACK, BILATERAL LOWER EXTREMITIES, PICTURES IN CHART, DRESSING CHANGES DONE, IV SITE INTACT, PATENT, NO REDNESS OR SWELLING, HAS ORDER FOR TRANSFUSION OF 2 UNITS PRBC'S, AWAITING MATCH FROM BLOOD BANK, CONSENT SIGNED BY DAUGHTER, WHO HAS POWER OF BOARD LINING MACHINE OPERATOR, PT MADE COMFORTABLE, CALL LIGHT PLACED WITHIN REACH, WILL CONT' TO MONITOR AND ASSESS.
[2019-07-14 15:30] VITALS: BP_SYST 123
[2019-07-14] MEDS ORDERED: BISACODYL 5 MG TABLET.DR (DULCOLAX) PO PRN (17:00)
[2019-07-14] MEDS ORDERED: ONDANSETRON HCL 4 MG/2 ML VIAL IVP PRN (17:30)
[2019-07-14] MEDS: LR 1,000 ML IV SCH (17:33)
[2019-07-14] MEDS: HYDROcodone/ACETAMIN 5-325 MG TAB (NORCO/ VICODIN) PO PRN (17:33)
--- NOTE | 2019-07-14 17:35 | NUR ---
CONSULT GI GI BLEED DR YANCEY [phone] S/W [facility] EXCHANGE
--- NOTE | 2019-07-14 17:40 | NUR ---
CONSULT ID SEPSIS DR FARTUN RODRIGUEZ [phone] S/W [facility] EXCHANGE FACE SHEET FAXED TO [phone]
[2019-07-14] MEDS: PIPERACILLIN/TAZO 3.375/DEX-IS 50 ML IV SCH (18:00)
--- NOTE | 2019-07-14 18:00 | NUR ---
BLOOD TRANSFUSION: PT HAS ORDER FOR TRANSFUSION OF 2 UNITS PRBC'S, FIRST UNIT STARTED, VSS, AFEBRILE, NO S/S OF ADVERSE REACTION, TOLERATING WELL, IV SITE INTACT, PATENT, NO REDNESS OR SWELLING, WILL CONT' WITH POC.
--- NOTE | 2019-07-14 19:00 | NUR ---
END OF SHIFT: PT RECEIVING BLOOD TRANSFUSION, CONDITION IS STABLE, NO S/S OF ADVERSE REACTION, AFEBRILE, VS WNL, DAUGHTER REMAINS AT BEDSIDE, CALL LIGHT PLACED WITHIN REACH, WILL CONT' TO MONITOR, WILL ENDORSE TO CYLINDER VALVE REPAIRER NURSE.
[2019-07-14 20:00] VITALS: BP_SYST 107
[2019-07-14] MEDS: PANTOPRAZOLE SODIUM 40 MG/VIAL (PROTONIX) IVP SCH (20:14)
[2019-07-14] MEDS: METHADONE HCL 10 MG TABLET PO SCH (20:15)
[2019-07-14 20:20] LABS: TOTAL IRON BIND. CAPACITY 107 ug/dL (250-450)
--- NOTE | 2019-07-14 23:00 | NUR ---
Second unit of blood started. Tube feeding started. HOB elevated. Gtube patent and intact. No residual noted. Turned repositioned q2. Will contiue to monitor.
[2019-07-15] MEDS: NACL 0.9% 1,000 ML IV SCH ×2 (00:30→12:55)
[2019-07-15 00:32] VITALS: BP_SYST 95
--- NOTE | 2019-07-15 01:44 | NUR ---
Blood transfusion complete. No reactions noted.
[2019-07-15] MEDS ORDERED: PIPERACILLIN/TAZOBACTAM 3.375 GM/VIAL (ZOSYN) IV ONE (04:23)
[2019-07-15] MEDS: PIPERACILLIN/TAZO 3.375/DEX-IS 50 ML IV SCH ×4 (04:52→18:46)
--- NOTE | 2019-07-15 05:57 | NUR ---
Patient current assessment unchanged.
[2019-07-15 06:35] LABS: BASOPHILS % (AUTO) 0.3 % (0.0-2.0); EOSINOPHILS # (AUTO) 0.7 K/uL (0.0-0.4); EOSINOPHILS % (AUTO) 5.5 % (0.0-4.0); HEMATOCRIT 26.2 % (36-54); HEMOGLOBIN 8.7 g/dL (14.0-18.0); LYMPHOCYTES # (AUTO) 1.7 K/uL (1.0-5.5); LYMPHOCYTES % (AUTO) 12.9 % (20.5-51.5); MEAN CORPUSCULAR HEMOGLOBIN 32 pg (27-31); MEAN CORPUSCULAR HGB CONC 33 % (32-36); MEAN CORPUSCULAR VOLUME 98 fL (79.0-98.0); MONOCYTES # (AUTO) 0.8 K/uL (0.0-1.0); NEUTROPHILS # (AUTO) 9.9 K/uL (1.8-7.7); NEUTROPHILS % (AUTO) 75.3 % (40.0-70.0); PLATELET COUNT (AUTO) 250 K/uL (130-430); RED BLOOD CELL COUNT(AUTO) 2.69 MIL/uL (4.2-6.2); WHITE BLOOD COUNT (AUTO) 13.1 K/uL (4.8-10.8)
[2019-07-15 06:50] LABS: ALANINE AMINOTRANSFERASE 14 U/L (12-78); ALBUMIN 1.6 g/dL (3.4-4.8); ANION GAP 8 (5-15); ASPARTATE AMINOTRANSFERASE 17 U/L (10-37); CALCIUM 8.1 mg/dL (8.4-11.0); CHLORIDE 109 mmol/L (98-107); CREATININE 1.04 mg/dL (0.55-1.30); GLUCOSE 123 mg/dL (70-99); POTASSIUM 3.7 mmol/L (3.5-5.1); SODIUM SERUM 142 mmol/L (136-145); TOTAL BILIRUBIN 0.4 mg/dL (0.0-1.0); UREA NITROGEN, BLOOD 51 mg/dL (8-21)
[2019-07-15 08:00] VITALS: BP_SYST 120
--- NOTE | 2019-07-15 08:00 | NUR ---
ASSUMPTION OF CARE: RECEIVED PT ASLEEP, AROUSED VIA LIGHT TACTILE STIMULI, DX:RISK FOR INJURY, R/T SEPSIS, VSS, AFEBRILE, BREATH SOUNDS ARE RHONCHI, BREATHING UNLABORED, SATURATING 98% ORA, IV SITE INTACT, PATENT, NO REDNESS OR SWELLING, NO S/S OF DISTRESS OR DISCOMFORT, CALL LIGHT PLACED WITHIN REACH, WILL CONT' TO MONITOR AND ASSESS.
[2019-07-15] MEDS: PANTOPRAZOLE SODIUM 40 MG/VIAL (PROTONIX) IVP SCH ×2 (08:58→20:22)
[2019-07-15] MEDS: METHADONE HCL 10 MG TABLET PO SCH ×2 (08:59→20:23)
[2019-07-15] MEDS: FUROSEMIDE 20 MG TABLET PO SCH (08:59)
[2019-07-15] MEDS: POTASSIUM CHLORIDE 20 MEQ TAB.PRT.SR PO SCH (09:05)
[2019-07-15] MEDS: BICALUTAMIDE 50 MG TABLET PO SCH (09:05)
[2019-07-15] MEDS: FLUCONAZOLE 100 MG TABLET (DIFLUCAN) PO SCH (09:05)
[2019-07-15] MEDS: TAMSULOSIN HCL 0.4 MG CAP PO SCH (09:05)
[2019-07-15] MEDS: DOCUSATE SODIUM 250 MG CAPSULE PO SCH (09:05)
--- NOTE | 2019-07-15 10:00 | NUR ---
PIN DRAFTER: MORNING MEDS GIVEN, PER ORDERED BY Rohini, TOLERATED WELL, PULLED UP IN BED, REPOSITIONED FOR COMFORT, WILL CONT' TO MONITOR AND ASSESS.
--- NOTE | 2019-07-15 10:15 | NUR ---
Nutrition Update Jimmy Scale 12 noted. Pt admitted for sepsis Diet: Jevity 1.5 at 50ml/hr with 100ml free water flush Q4H and Kb BID BMI: 25.3 kg/m2 RD to follow per nutrition care standards.
--- NOTE | 2019-07-15 11:50 | NUR ---
VISIT: AT BEDSIDE FOR ASSESSMENT OF PT, DISCUSSED POC WITH PT, NEW ORDERS GIVEN, WILL CONT' TO MONITOR, WILL CONT' WITH POC.
[2019-07-15 12:00] VITALS: BP_SYST 108
[2019-07-15] MEDS: LR 1,000 ML IV SCH (12:55)
[2019-07-15] MEDS: HYDROcodone/ACETAMIN 5-325 MG TAB (NORCO/ VICODIN) PO PRN ×2 (14:34→19:56)
--- NOTE | 2019-07-15 15:30 | NUR ---
VISIT: AT BEDSIDE FOR ASSESSMENT OF PT, NEW ORDERS GIVEN, WILL CONT' WITH POC.
--- NOTE | 2019-07-15 15:58 | NUR ---
DC Planning: LTAC EVAL : faxed FS only per Inés request, she will be coming in to get the rest of info for the evaluation tomorrow. .
[2019-07-15 16:30] VITALS: BP_SYST 115
[2019-07-15] MEDS: BACLOFEN 10 MG TABLET PO PRN (17:17)
[2019-07-15] MEDS: SOD FERRIC GLUC COMPLEX/SUC 125 MG in NS 100 ML IV SCH (17:17)
--- NOTE | 2019-07-15 18:00 | NUR ---
END OF SHIFT: PT REMAINS STABLE, POSITIONED FOR COMFORT, DAUGHTER AT BEDSIDE AND STATES HER FATHER IS STILL IN PAIN, WILL CALL FOR ORDERS, CALL LIGHT PLACED WITHIN REACH, WILL CONT' TO MONITOR, WILL ENDORSE TO DIGITAL CONTENT MARKETING MANAGER NURSE.
[2019-07-15 20:00] VITALS: BP_SYST 122
[2019-07-16 00:25] VITALS: BP_SYST 96
[2019-07-16] MEDS: PIPERACILLIN/TAZO 3.375/DEX-IS 50 ML IV SCH ×5 (00:50→23:45)
[2019-07-16] MEDS: LR 1,000 ML IV SCH ×2 (04:53→16:29)
[2019-07-16 06:10] LABS: CALCIUM 8.1 mg/dL (8.4-11.0); CHLORIDE 109 mmol/L (98-107); CREATININE 1.16 mg/dL (0.55-1.30); GLUCOSE 121 mg/dL (70-99); SODIUM SERUM 143 mmol/L (136-145); UREA NITROGEN, BLOOD 43 mg/dL (8-21)
[2019-07-16 07:08] LABS: BASOPHILS # (AUTO) 0.1 K/uL (0.0-0.2); BASOPHILS % (AUTO) 0.4 % (0.0-2.0); EOSINOPHILS # (AUTO) 0.8 K/uL (0.0-0.4); EOSINOPHILS % (AUTO) 5.6 % (0.0-4.0); HEMATOCRIT 28.6 % (36-54); HEMOGLOBIN 9.6 g/dL (14.0-18.0); LYMPHOCYTES # (AUTO) 1.6 K/uL (1.0-5.5); LYMPHOCYTES % (AUTO) 11.1 % (20.5-51.5); MEAN CORPUSCULAR HEMOGLOBIN 33 pg (27-31); MEAN CORPUSCULAR HGB CONC 34 % (32-36); MEAN CORPUSCULAR VOLUME 97 fL (79.0-98.0); MONOCYTES # (AUTO) 0.7 K/uL (0.0-1.0); MONOCYTES % (AUTO) 5.3 % (1.7-9.3); NEUTROPHILS % (AUTO) 77.6 % (40.0-70.0); PLATELET COUNT (AUTO) 246 K/uL (130-430); RED BLOOD CELL COUNT(AUTO) 2.94 MIL/uL (4.2-6.2); RETICULOCYTE COUNT 2.9 % (0.5-1.5); WHITE BLOOD COUNT (AUTO) 14.1 K/uL (4.8-10.8)
[2019-07-16 07:10] LABS: ANION GAP 10 (5-15)
[2019-07-16 08:15] VITALS: BP_SYST 128
[2019-07-16] MEDS: PANTOPRAZOLE SODIUM 40 MG/VIAL (PROTONIX) IVP SCH ×2 (09:04→23:32)
[2019-07-16] MEDS: DOCUSATE SODIUM 250 MG CAPSULE PO SCH (09:04)
[2019-07-16] MEDS: FLUCONAZOLE 100 MG TABLET (DIFLUCAN) PO SCH (09:05)
[2019-07-16] MEDS: TAMSULOSIN HCL 0.4 MG CAP PO SCH (09:05)
[2019-07-16] MEDS: FUROSEMIDE 20 MG TABLET PO SCH (09:05)
[2019-07-16] MEDS: POTASSIUM CHLORIDE 20 MEQ TAB.PRT.SR PO SCH (09:05)
[2019-07-16] MEDS: METHADONE HCL 10 MG TABLET PO SCH ×2 (09:06→22:30)
[2019-07-16] MEDS: HYDROcodone/ACETAMIN 5-325 MG TAB (NORCO/ VICODIN) PO PRN ×3 (09:07→17:16)
[2019-07-16] MEDS: BICALUTAMIDE 50 MG TABLET PO SCH (09:07)
--- NOTE | 2019-07-16 09:10 | NUR ---
Routine Patient resting in bed with daughterFaye at bedside. Scheduled medications given per order. Pain med given as well. Patient stable at this time.
--- NOTE | 2019-07-16 11:59 | NUR ---
Discharge Planning: DCP gave copy of pt referral to Inés Fernando (f [phone] P [phone]) DCP to followuup.
[2019-07-16 12:34] VITALS: BP_SYST 128
--- NOTE | 2019-07-16 12:45 | NUR ---
Dietitian Recommendations *Recommend Jevity 1.2 at 50ml/hr (goal rate), Prosource BID, Kb BID, FWF 100ml Q4H via GT. Provides: 1720 kcal, 102 gm protein and 1628ml free water daily. Meets: 90% of est calorie needs and 93% of upper end of est protein needs. Please see nutritional assessment for details. [facility], RD
--- NOTE | 2019-07-16 13:04 | NUR ---
Informed Dr. Myles's office that Dr. Palomino was taking over care of patient.
[2019-07-16 16:21] VITALS: BP_SYST 116
[2019-07-16] MEDS: SOD FERRIC GLUC COMPLEX/SUC 125 MG in NS 100 ML IV SCH (16:44)
[2019-07-16] MEDS ORDERED: EPOETIN ALFA 4,000 UNITS/ML VIAL SUBCUT SCH (17:00)
--- NOTE | 2019-07-16 18:45 | NUR ---
Routine Patient resting comfortably in bed with parisa Potts at bedside. Scheduled IV abx given per order. Patient stable throughout shift.
[2019-07-17 00:15] VITALS: BP_SYST 112
[2019-07-17] MEDS: PIPERACILLIN/TAZO 3.375/DEX-IS 50 ML IV SCH (06:23)
[2019-07-17 08:50] VITALS: BP_SYST 114
[2019-07-17] MEDS: BICALUTAMIDE 50 MG TABLET PO SCH (09:12)
[2019-07-17] MEDS: FLUCONAZOLE 100 MG TABLET (DIFLUCAN) PO SCH (09:12)
[2019-07-17] MEDS: PANTOPRAZOLE SODIUM 40 MG/VIAL (PROTONIX) IVP SCH ×2 (09:12→21:04)
[2019-07-17] MEDS: FUROSEMIDE 20 MG TABLET PO SCH (09:13)
[2019-07-17] MEDS: DOCUSATE SODIUM 250 MG CAPSULE PO SCH (09:13)
[2019-07-17] MEDS: POTASSIUM CHLORIDE 20 MEQ TAB.PRT.SR PO SCH (09:13)
[2019-07-17] MEDS: TAMSULOSIN HCL 0.4 MG CAP PO SCH (09:13)
[2019-07-17] MEDS: HYDROcodone/ACETAMIN 5-325 MG TAB (NORCO/ VICODIN) PO PRN ×2 (09:16→18:31)
[2019-07-17] MEDS: METHADONE HCL 10 MG TABLET PO SCH ×2 (09:35→21:05)
[2019-07-17] MEDS: BACLOFEN 10 MG TABLET PO PRN ×2 (10:52→21:05)
--- NOTE | 2019-07-17 11:11 | NUR ---
CONSULTATION PAGED REASON FOR CONSULTATION:SOB WAS CONSULT CALLED?Y PERSON WHO WAS NOTIFIED:ALEX CONSULTING PHYSICIAN:CASSANDRA CRUZ WARP PREPARER SPECIALTY:PULMO WARP PREPARER PHONE NUMBER:[phone] REQUESTING PHYSICIAN:DIMA YOUSSEF
[2019-07-17] MEDS ORDERED: ALBUTEROL SULFATE 0.083% 2.5 MG/3 ML VIAL.NEB INH PRN (11:15)
[2019-07-17] MEDS ORDERED: IPRATROPIUM BROM 0.5 MG/2.5 ML VIAL.NEB (ATROVENT) INH PRN (11:15)
[2019-07-17] MEDS: LR 1,000 ML IV SCH (11:20)
[2019-07-17 12:00] VITALS: BP_SYST 114
[2019-07-17] MEDS ORDERED: LEVOFLOXACIN 250 MG/D5W 50 ML IV SCH (12:00)
[2019-07-17 12:05] VITALS: BP_SYST 150
--- NOTE | 2019-07-17 12:44 | NUR ---
Pagebaylee Palomino for CXR result
[2019-07-17] MEDS ORDERED: FUROSEMIDE 20 MG/2 ML VIAL IVP ONE (13:00)
--- NOTE | 2019-07-17 13:50 | NUR ---
PAGED PAGED DIMA YOUSSEF AT [phone] SPOKE WITH SOFYA.
--- NOTE | 2019-07-17 13:57 | NUR ---
Spoke to Dr. Palomino regarding LTAC discharge , MD said he will come to reassess the patient.
[2019-07-17] MEDS ORDERED: ALBUTEROL SULFATE 0.083% 2.5 MG/3 ML VIAL.NEB INH SCH (15:00)
[2019-07-17] MEDS ORDERED: IPRATROPIUM BROM 0.5 MG/2.5 ML VIAL.NEB (ATROVENT) INH SCH (15:00)
[2019-07-17 16:34] VITALS: BP_SYST 117
--- NOTE | 2019-07-17 16:50 | NUR ---
WOUND EVALUATION: Late note for 07/17/19 at 1650 secondary to patient care. Patient received in a Frantz Bed with an IsoFlex ALEXIA mattress with low air-loss therapy initiated, awake, alert, confused. Patient is unable to turn in bed independently. Jimmy Score is a 10. Past Medical History: Arthritis, Prostate Cancer in remission, Dementia, Obstructive Uropathy, Hypertension, Chronic Pain Syndrome, Dysphagia, total hip replacement, Rheumatoid Arthritis, CKD, Anemia of Chronic Illness, severe Protein Malnutrition, dysphagia, G-tube, left bundle branch block, multiple pressure ulcers. Recent Labs: WBC 14.1, RBC 2.94, hemoglobin 9.6, hematocrit 28.6, chloride 109, BUN 43, creatinine 1.16, glucose 121, calcium 8.1, iron 14, TIBC 107, serum total protein 5.2, albumin 1.6. Microbiology: Blood culture results 2 in progress. MRSA screen results negative. Urine culture results negative. Stool culture results for occult blood negative 2. Intrinsic factors that delay wound healing: Dysphagia, severe Hypoalbuminemia, CKD, Anemia of Chronic Illness, severe Protein Malnutrition, multiple wounds and pressure ulcers, present on admission. Extrinsic factors that delay wound healing: Immobility. Wound Assessment: 1. Left Hip at Greater Trochanter: Stage IV pressure ulcer, present on admission. Wound bed has 50% yellow slough, 10% black slough, 40% red tissue. Mild odor, scant yellow purulent drainage. Maggi-wound intact, pink, with black tissue surrounding. Bone is palpable. Undermining present from 48 o'clock (0.6 cm at 4 o'clock; 0.5 cm at 6 o'clock; 0.8 cm at 8 o'clock). Wound measures 8.0 cm x 10.3 cm x 2.2 cm. Recommend: Cleanse wound with normal saline. Apply moisture barrier cream to maggi-wound. Apply Venelex ointment to wound bed. Place one 2.2 inch TenderWet into wound bed. Cover with foam dressing. Perform wound care daily, and as needed for dressing soiling or dislodgement. 2. Left Upper Posterior Lateral Pelvis: Wound of unknown etiology, present on admission. Wound bed has 50% pink tissue, 50% brown eschar. No odor, no drainage. Maggi-wound intact. Wound measures 0.8 cm x 1.8 cm. Recommend: Cleanse wound with normal saline. Apply moisture barrier cream to maggi-wound. Apply Venelex ointment to wound bed. Cover with foam dressing. Perform wound care daily, and as needed for dressing soiling or dislodgement. 3. Left Upper Posterior Pelvis, inferior and anterior to Site 2: Skin tear. Wound bed has 100% pink tissue. No odor, no drainage. Maggi-wound intact. Site measures 1.2 cm x 0.5 cm. 4. Left Buttock: Skin tear. Wound bed has 100% pink tissue. No odor, no drainage. Maggi-wound intact. Site measures 0.8 cm x 0.8 cm. Recommend: Cleanse involved areas with normal saline. Pat dry. Apply moisture barrier cream to involved areas. Perform site care daily, and as needed for soiling. 5. Left Buttock, inferior to site 4: Wound of unknown etiology, present on admission. Wound bed has 90% yellow tissue, 10% pink tissue. No odor, no drainage. Maggi-wound intact. Site measures 1.2 cm x 1.8 cm. 6. Left Buttock near Ischium: Multiple open skin areas of unknown etiology, present on admission. Site has 60% pink tissue, 40% yellow tissue. No odor, no drainage. Periwound is intact. Site measures 1.4 cm x 1.4 cm. 7. Left Buttock near Ischium, inferior to Site 6: Open skin area, present on admission. Site has 100% pink tissue. No odor, no drainage. Periwound intact. Site measures 0.8 cm x 0.7 cm. 8. Right Buttock: Multiple open skin areas of unknown etiology, present on admission. Site has 100% pink tissue. No odor, no drainage. Periwound is intact. Surrounding tissue has scar tissue and dark discolored skin. Site measures 6.3 cm x 4.0 cm. Recommend: Cleanse wounds with normal saline. Apply moisture barrier cream to maggi-wounds. Apply Venelex ointment to wound beds. Cover with foam dressings. Perform wound care daily, and as needed for dressing soiling or dislodgement. 9. Sacral area: Prior Stage IV pressure ulcer, present on admission. Wound bed has 85% dark red tissue, 15% yellow slough. No odor, scant sanguineous drainage. Maggi-wound intact, pink. Surrounding tissue has scar tissue and dry flaky skin. Wound measures 7.0 cm x 7.0 cm x 3.2 cm. Recommend: Cleanse wound with normal saline. Apply moisture barrier cream to maggi-wound. Apply Venelex ointment to wound bed. Cover with Sacral foam dressing. Perform wound care daily, and as needed for dressing soiling or dislodgement. 10. Right Hip at Greater Trochanter: Healing Stage IV pressure ulcer, present on admission. Wound bed has 100% pink tissue. No odor, scant sanguineous drainage. Maggi-wound intact. Surrounding tissue has scar tissue and dry flaky skin. Wound measures 8.2 cm x 5.4 cm. Recommend: Cleanse wound with normal saline. Apply moisture barrier cream to maggi-wound. Apply Venelex ointment to wound bed. Cover with foam dressing. Perform wound care daily, and as needed for dressing soiling or dislodgement. 11. Right Anterior Medial Penn: Multiple wounds of unknown etiology, including what possibly appears to be a vertical linear surgical site, present on admission. Wound beds have 90% red tissue, 10% dark red scabs. No odor, no drainage. Maggi-wounds intact. Surrounding tissue has blanchable red erythema. Wounds measure 12.4 cm x 9.5 cm. 12. Right Anterior Lateral Lower Extremity: Multiple wounds of unknown etiology, present on admission. Wound beds have 100% red tissue. No odor, no drainage. Maggi-wounds intact. Surrounding tissue has blanchable red erythema. Wounds measure 12.5 cm x 7.5 cm. Recommend: Cleanse wounds with normal saline. Apply oil emulsion dressings to open wound areas. Cover sites with a BD pads. Wrap with Luis wrap. Perform wound care daily, and as needed for dressing soiling or dislodgment. 13. Right Medial Foot/Malleolus: Unstageable pressure ulcer, present on admission. Wound bed has 75% dark discolored tissue with red tint, 10% yellow slough, 10% white tissue, 5% pink tissue. No odor, no drainage. Periwound intact. Surrounding tissue has blanchable erythema and dark discolored tissue/possibly bullae on each lateral aspect of wound. Foot has 4+ pitting edema. Wound measures 3.8 cm x 3.4 cm. Recommend: Cleanse wound with normal saline. Apply moisture barrier cream to maggi-wound. Apply Venelex ointment to wound bed. Cover with foam dressing. Perform wound care daily, and as needed for dressing soiling or dislodgement. Offload site at all times with pillows underneath calf and in between knees/malleoli. 14. Right Medial Great Toe: Area of ecchymosis, possible sDTI, present on admission, appears that toes are forcefully touching each other from pressure. Site has 20% dark red coloration, 10% black discoloration. No odor, no drainage. Maggi-wound intact. Site measures 0.6 cm x 0.3 cm. 15. Right Medial Second Toe: Area of ecchymosis, possible sDTI, present on admission, appears that toes are forcefully touching each other from pressure. Site has 90% dark discoloration, 10% dark red discoloration. No odor, no drainage. Maggi-wound intact. Site measures 1.0 cm x 1.0 cm. 16. Right Medial Third Toe: Area of ecchymosis, possible sDTI, present on admission, appears that toes are forcefully touching each other from pressure. Site has 100% dark purple discoloration. No odor, no drainage. Maggi-wound intact. Surrounding tissue has blanchable red erythema. Site measures 1.3 cm x 0.5 cm. 17. Right Medial Fourth Toe: Area of ecchymosis, possible sDTI, present on admission, appears that toes are forcefully touching each other from pressure. Site has 5% yellow discoloration, 95% dark purple discoloration. No odor, no drainage. Maggi-wound intact. Surrounding tissue has blanchable red erythema and dark discolored tissue. Site measures 0.9 cm x 1.2 cm. 18. Right Medial Fifth Toe: Area of ecchymosis, possible sDTI, present on admission, appears that toes are forcefully touching each other from pressure. Site has 100% dark purple discoloration. No odor, no drainage. Maggi-wound intact. Site measures 1.8 cm x 0.8 cm. Recommend: Gently wipe in between toe areas with gauze to ensure areas are dry. Insert non-adhesive foam dressings cut to size in between toe areas to protect areas. Change foam dressings and check sites daily, and when necessary for dressing soiling or dislodgment. 19. Right Lateral Foot: sDTI, present on admission. Site has black discoloration. Surrounding tissue has blanchable red erythema. No odor, no drainage. Foot has 4+ pitting edema. Site measures 5.0 cm x 11.5 cm. 20. Right Lateral Fifth Toe: Area of ecchymosis, possible sDTI, connected to Right Lateral Foot lesion in Site 18, present on admission, Site has Dark discoloration with blanchable red erythema. No odor, no drainage. Maggi-wound intact. Recommend: Offload area at all times by placing pillow lengthwise extremity. Check area during hourly rounds to ensure that area is floating at all times. 21. Left Anterior Medial Distal Penn: Multiple wounds of unknown etiology, present on admission. Wound beds have 100% red tissue. No odor, no drainage. Maggi-wounds intact. Surrounding tissue has blanchable red erythema. Wounds measure 7.5 cm x 4.5 cm. 22. Left Lateral Lower Extremity: Multiple wounds of unknown etiology, present on admission. Wound beds have 100% red tissue. No odor, no drainage. Maggi-wounds intact. Surrounding tissue has blanchable red erythema. Wounds measure 13.0 cm x 10.2 cm. Recommend: Cleanse wounds with normal saline. Apply oil emulsion dressings to open wound areas. Cover sites with a BD pads. Wrap with Luis wrap. Perform wound care daily, and as needed for dressing soiling or dislodgment. 23. Left Medial Great Toe: Chronic wound of unknown etiology, present on admission. Site has 90% dark red eschar, 10% black eschar. No odor, no drainage. Maggi-wound intact. Site measures 0.5 cm x 0.8 cm. 24. Left Dorsal Great Toe: Chronic wound of unknown etiology, present on admission. Site has 90% black eschar, 10% yellow eschar. No odor, no drainage. Maggi-wound intact. Site measures 0.4 cm x 0.3 cm. Recommend: No dressings needed. Continue to monitor sites q shift. 25. Right Heel: Blanchable red erythema, present on admission. 26. Left Heel: Blanchable red erythema, present on admission. Recommend: Offload heels/feet with one pillow lengthwise under each extremity at all times. Ensure that heels/feet are floating during hourly rounds. Also recommend: Encourage and reposition patient side to side every 2 hours with pillow support and off-load pressure areas with pillows for pressure re-distribution. Offload feet/heels with one pillow lengthwise under each extremity at all times. Perform skin care and monitor skin integrity Q shift. Use moisture barrier cream on buttocks and other moisture susceptible areas QID and as needed for soiling. Maintain patient on low air-loss therapy. Recommend surgical consult.
[2019-07-17] MEDS: SOD FERRIC GLUC COMPLEX/SUC 125 MG in NS 100 ML IV SCH (17:08)
--- NOTE | 2019-07-17 18:44 | NUR ---
Spoke to Faye Conroy daughter of the patient ,regarding discharge order to [facility] for continues care , explained antibiotic therapy, wound care and agreed for transfer.Inés from [facility] phone no. [phone] , informed patient will go to room [facility] call for report [phone]., will endorse to night clerk auditor.
[2019-07-17 19:05] VITALS: BP_SYST 117
--- NOTE | 2019-07-17 19:31 | NUR ---
Pt is lying in bed fully awake and alert. No acute distress noted at this time. Pt is awaiting transfer to [facility]. One daughter is at the bedside. Fall and safety precautions are in place.
--- NOTE | 2019-07-17 20:15 | NUR ---
Photos of all pt's wounds taken.
--- NOTE | 2019-07-17 21:43 | NUR ---
Pt was transferred to [facility] via Ambulance in stable condition. sql data architect was removed from pt and given to Flag Car Driver. G Tube was flushed with 50ml water and clamped. Saline lock in RAC was left in place with the dressing dry and intact. Wrist ID band was removed and placed in the shredder. Plain ID band with pt's name and was placed on pt's wrist. Pt's daughter was at the bedside at time of pt's transfer.
[2019-07-18] MEDS ORDERED: BALSAM PERU/CASTOR OIL 60 GM OINT...G. TP SCH (09:00)
== END 2019-07-17 21:43 | DRG 871 ==
LOC: SED 09:34 → STU 14:25
PROVIDERS: ADMIT Internal Medicine; ATTEND Internal Medicine Hospice and Palliative Medicine
PROC: 30233N1 Transfusion of Nonautologous Red Blood Cells into Peripheral Vein, Percutaneous Approach (ICD-10-PCS; principal; 2019-07-14)
DX: A41.9 Sepsis, unspecified organism (principal); L89.154 Pressure ulcer of sacral region, stage 4; L89.324 Pressure ulcer of left buttock, stage 4; G93.41 Metabolic encephalopathy; E43 Unspecified severe protein-calorie malnutrition; N17.0 Acute kidney failure with tubular necrosis; N39.0 Urinary tract infection, site not specified; M19.90 Unspecified osteoarthritis, unspecified site; N18.9 Chronic kidney disease, unspecified; N13.9 Obstructive and reflux uropathy, unspecified; M06.9 Rheumatoid arthritis, unspecified; D63.8 Anemia in other chronic diseases classified elsewhere; E87.70 Fluid overload, unspecified; F03.90 Unspecified dementia, unspecified severity, without behavioral disturbance, psychotic disturbance, mood disturbance, and anxiety; G89.4 Chronic pain syndrome; I12.9 Hypertensive chronic kidney disease with stage 1 through stage 4 chronic kidney disease, or unspecified chronic kidney disease; I44.7 Left bundle-branch block, unspecified; I51.7 Cardiomegaly; N40.0 Benign prostatic hyperplasia without lower urinary tract symptoms; Z85.46 Personal history of malignant neoplasm of prostate; Z79.899 Other long term (current) drug therapy; Z68.25 Body mass index [BMI] 25.0-25.9, adult; E86.0 Dehydration
CPT/HCPCS: 36415; 71045; 74018; 80048; 80053; 80307; 81000-TC; 82140-TC; 82272; 83540-TC; 83550-TC; 83605; 83880; 84439; 84484; 85025; 85044-TC; 85610-TC; 86886; 86900; 86901; 86920; 87040-TC; 87081; 87086; 93005; 94640; 96365; 96375; 99285; A6209; C9113; G0378; G0482; J0696; J0885; J1200; J1940; J1956; J2270; J2543; J2916; J7030; J7040; J7050; J7120; J7613; P9021

== ENCOUNTER 2019-10-15 14:47 | Inpatient (IN) | payer OTHER, BC ==
[~2019-10-15] VITALS: Ht 175.3 cm; Wt 79.8 kg
[2019-10-15 14:55] VITALS: BP_SYST 114
[2019-10-15] MEDS ORDERED: NS 500 ML IV ONE (15:30)
[2019-10-15 16:00] LABS: BASOPHILS # (AUTO) 0.1 K/uL (0.0-0.2); BASOPHILS % (AUTO) 0.9 % (0.0-2.0); EOSINOPHILS # (AUTO) 0.8 K/uL (0.0-0.4); EOSINOPHILS % (AUTO) 7.5 % (0.0-4.0); HEMOGLOBIN 7.7 g/dL (14.0-18.0); LYMPHOCYTES # (AUTO) 1.7 K/uL (1.0-5.5); LYMPHOCYTES % (AUTO) 16.3 % (20.5-51.5); MEAN CORPUSCULAR HEMOGLOBIN 28 pg (27-31); MEAN CORPUSCULAR HGB CONC 32 % (32-36); MEAN CORPUSCULAR VOLUME 88 fL (79.0-98.0); MONOCYTES # (AUTO) 0.7 K/uL (0.0-1.0); MONOCYTES % (AUTO) 6.3 % (1.7-9.3); NEUTROPHILS # (AUTO) 7.3 K/uL (1.8-7.7); PLATELET COUNT (AUTO) 328 K/uL (130-430); RED BLOOD CELL COUNT(AUTO) 2.74 MIL/uL (4.2-6.2); RED CELL DISTRIBUTION WIDTH 18.6 % (9.0-15.0); WHITE BLOOD COUNT (AUTO) 10.5 K/uL (4.8-10.8)
[2019-10-15 16:09] LABS: ANION GAP 5 (5-15); CALCIUM 8.6 mg/dL (8.4-11.0); CHLORIDE 98 mmol/L (98-107); CREATININE 1.01 mg/dL (0.55-1.30); GLUCOSE 111 mg/dL (70-99); POTASSIUM 4.2 mmol/L (3.5-5.1); SODIUM SERUM 130 mmol/L (136-145); UREA NITROGEN, BLOOD 35 mg/dL (8-21)
[2019-10-15 16:11] LABS: PROTHROMBIN TIME 10.4 SECS (9.5-12.5)
[2019-10-15 16:15] LABS: ALANINE AMINOTRANSFERASE 21 U/L (12-78); ALBUMIN 1.8 g/dL (3.4-4.8); ASPARTATE AMINOTRANSFERASE 23 U/L (10-37); TOTAL BILIRUBIN 0.5 mg/dL (0.0-1.0)
[2019-10-15 17:22] LABS: BILIRUBIN,URINE NEGATIVE (NEGATIVE); BLOOD, URINE NEGATIVE (NEGATIVE); CLARITY/URINE CLEAR (CLEAR); COLOR,URINE YELLOW (YELLOW); GLUCOSE,URINE NEGATIVE (NEGATIVE); KETONES,URINE NEGATIVE (NEGATIVE); LEUKOCYTE ESTERASE ,URINE 1+ (NEGATIVE); NITRITE, URINE NEGATIVE (NEGATIVE); PROTEIN URINE TRACE (NEGATIVE); UROBILINOGEN,URINE 0.2 (0.2-1.0)
[2019-10-15 17:25] LABS: BACTERIA,URINE FEW /HPF (None Seen); RBC,URINE 0-3 /HPF (0-3)
[2019-10-15 17:30] VITALS: BP_SYST 116
[2019-10-15] MEDS ORDERED: PANTOPRAZOLE SODIUM 40 MG/VIAL (PROTONIX) IVP ONE (18:00)
[2019-10-15] MEDS ORDERED: BISACODYL 5 MG TABLET.DR (DULCOLAX) PO PRN (18:00)
[2019-10-15] MEDS ORDERED: BACLOFEN 10 MG TABLET PO PRN (18:00)
[2019-10-15 18:36] LABS: HEMATOCRIT 22.6 % (36-54); HEMOGLOBIN 7.3 g/dL (14.0-18.0)
[2019-10-15 19:45] VITALS: BP_SYST 118
[2019-10-15] MEDS: METHADONE HCL 10 MG TABLET PO SCH (21:00)
[2019-10-16 00:40] VITALS: BP_SYST 126
[2019-10-16 06:44] LABS: THYROID STIMULATING HORMONE 2.95 uIu/mL (0.36-3.74)
[2019-10-16 07:47] LABS: TOTAL IRON BIND. CAPACITY 75 ug/dL (250-450)
[2019-10-16 07:52] LABS: HEMOGLOBIN 6.8 g/dL (14.0-18.0)
[2019-10-16 08:18] VITALS: BP_SYST 137
[2019-10-16] MEDS: FLUCONAZOLE 100 MG TABLET (DIFLUCAN) PO SCH (09:00)
[2019-10-16] MEDS: TAMSULOSIN HCL 0.4 MG CAP PO SCH (09:00)
[2019-10-16] MEDS: POTASSIUM CHLORIDE 20 MEQ TAB.PRT.SR PO SCH (09:00)
[2019-10-16] MEDS: METHADONE HCL 10 MG TABLET PO SCH ×2 (09:00→21:00)
[2019-10-16] MEDS: FUROSEMIDE 20 MG TABLET PO SCH (09:00)
[2019-10-16] MEDS: BICALUTAMIDE 50 MG TABLET PO SCH (09:00)
[2019-10-16] MEDS: DOCUSATE SODIUM 250 MG CAPSULE PO SCH (09:00)
[2019-10-16 09:02] LABS: HEMATOCRIT 22.9 % (36-54); HEMOGLOBIN 7.4 g/dL (14.0-18.0); RETICULOCYTE COUNT 4.2 % (0.5-1.5)
[2019-10-16] MEDS: PANTOPRAZOLE SODIUM 40 MG/VIAL (PROTONIX) IVP SCH ×2 (09:32→21:28)
[2019-10-16 10:50] LABS: ERYTHROCYTE SEDIMENTATION RATE > 140 MM/HR (0-15)
[2019-10-16 12:07] VITALS: BP_SYST 135
[2019-10-16] MEDS: MORPHINE 2 MG/ML INJ. SYRINGE IVP PRN ×2 (12:17→17:09)
[2019-10-16] MEDS ORDERED: MENTHOL/ZINC OXIDE 113 GM OINT. TP PRN (16:15)
[2019-10-16 16:34] VITALS: BP_SYST 152
[2019-10-16] MEDS: BALSAM PERU/CASTOR OIL 60 GM OINT...G. TP SCH (17:09)
[2019-10-16 18:47] LABS: HEMOGLOBIN 9.3 g/dL (14.0-18.0)
[2019-10-16] MEDS: MUPIROCIN 2% TOPICAL OINTMENT 22 GM TP SCH (21:27)
[2019-10-16 21:50] VITALS: BP_SYST 142
[2019-10-16 22:20] VITALS: BP_SYST 129
[2019-10-17 01:32] VITALS: BP_SYST 128
[2019-10-17] MEDS: MORPHINE 2 MG/ML INJ. SYRINGE IVP PRN (06:21)
[2019-10-17 06:23] LABS: HEMATOCRIT 29.9 % (36-54); HEMOGLOBIN 9.8 g/dL (14.0-18.0)
[2019-10-17 07:52] VITALS: BP_SYST 128
[2019-10-17 08:10] LABS: % FREE PSA >30.0 % (.); FREE PSA 0.03 ng/mL; KAPPA & LAMBDA LT CHAIN RATIO 0.95 (0.26-1.65); PROSTATE SPECIFIC AG TOTAL <0.1 ng/mL (0.0-4.0)
[2019-10-17] MEDS: DOCUSATE SODIUM 250 MG CAPSULE PO SCH (09:00)
[2019-10-17] MEDS: TAMSULOSIN HCL 0.4 MG CAP PO SCH (09:10)
[2019-10-17] MEDS: FLUCONAZOLE 100 MG TABLET (DIFLUCAN) PO SCH (09:11)
[2019-10-17] MEDS: METHADONE HCL 10 MG TABLET PO SCH ×2 (09:11→21:10)
[2019-10-17] MEDS: FUROSEMIDE 20 MG TABLET PO SCH (09:11)
[2019-10-17] MEDS: POTASSIUM CHLORIDE 20 MEQ TAB.PRT.SR PO SCH (09:11)
[2019-10-17] MEDS: PANTOPRAZOLE SODIUM 40 MG/VIAL (PROTONIX) IVP SCH ×2 (09:11→21:10)
[2019-10-17] MEDS: MUPIROCIN 2% TOPICAL OINTMENT 22 GM TP SCH ×2 (09:12→21:11)
[2019-10-17] MEDS: BALSAM PERU/CASTOR OIL 60 GM OINT...G. TP SCH (09:12)
[2019-10-17] MEDS: BICALUTAMIDE 50 MG TABLET PO SCH (09:22)
[2019-10-17 11:07] LABS: A/G RATIO 0.5 (0.7-1.7); ALBUMIN 1.9 g/dL (2.9-4.4); ALPHA-1-GLOBULIN 0.4 g/dL (0.0-0.4); ALPHA-2-GLOBULIN 0.8 g/dL (0.4-1.0); BETA GLOBULIN 0.8 g/dL (0.7-1.3); GAMMA GLOBULIN 1.6 g/dL (0.4-1.8); GLOBULIN, TOTAL 3.6 g/dL (2.2-3.9); M-SPIKE Not Observed g/dL (Not Observed)
[2019-10-17 12:15] VITALS: BP_SYST 139
[2019-10-17 16:12] VITALS: BP_SYST 129
[2019-10-17 19:24] LABS: HEMATOCRIT 31.1 % (36-54); HEMOGLOBIN 10.2 g/dL (14.0-18.0)
[2019-10-17 21:08] VITALS: BP_SYST 118
[2019-10-17] MEDS ORDERED: ERTAPENEM SODIUM 1 GM/VIAL VIAL ONE (22:18)
[2019-10-17] MEDS: ERTAPENEM SODIUM 1 GM in NS 50 ML IV SCH (22:31)
[2019-10-18 00:38] VITALS: BP_SYST 145
[2019-10-18 07:06] LABS: FOLATE (FOLIC ACID) >20.0 ng/mL (>3.0)
[2019-10-18 07:55] VITALS: BP_SYST 133
[2019-10-18] MEDS: TAMSULOSIN HCL 0.4 MG CAP PO SCH (08:49)
[2019-10-18] MEDS: METHADONE HCL 10 MG TABLET PO SCH ×2 (08:49→21:16)
[2019-10-18] MEDS: PANTOPRAZOLE SODIUM 40 MG/VIAL (PROTONIX) IVP SCH ×2 (08:49→21:15)
[2019-10-18] MEDS: POTASSIUM CHLORIDE 20 MEQ TAB.PRT.SR PO SCH (08:49)
[2019-10-18] MEDS: FLUCONAZOLE 100 MG TABLET (DIFLUCAN) PO SCH (08:50)
[2019-10-18] MEDS: BICALUTAMIDE 50 MG TABLET PO SCH (08:51)
[2019-10-18] MEDS: DOCUSATE SODIUM 250 MG CAPSULE PO SCH (08:51)
[2019-10-18] MEDS: FUROSEMIDE 20 MG TABLET PO SCH (08:51)
[2019-10-18] MEDS: MUPIROCIN 2% TOPICAL OINTMENT 22 GM TP SCH ×2 (08:56→21:25)
[2019-10-18] MEDS: BALSAM PERU/CASTOR OIL 60 GM OINT...G. TP SCH (08:56)
[2019-10-18 10:31] LABS: HAPTOGLOBIN 366 mg/dL (38-329)
[2019-10-18 12:56] VITALS: BP_SYST 117
[2019-10-18 16:25] VITALS: BP_SYST 104
[2019-10-18] MEDS: MORPHINE 2 MG/ML INJ. SYRINGE IVP PRN (17:20)
[2019-10-18] MEDS: ERTAPENEM SODIUM 1 GM in NS 50 ML IV SCH (21:16)
[2019-10-18 21:18] VITALS: BP_SYST 128
[2019-10-19 01:02] VITALS: BP_SYST 136
[2019-10-19 09:00] VITALS: BP_SYST 131
[2019-10-19] MEDS ORDERED: CYANOCOBALAMIN 1000 mCg TABLET PO SCH (09:00)
[2019-10-19] MEDS: PANTOPRAZOLE SODIUM 40 MG/VIAL (PROTONIX) IVP SCH ×2 (09:11→20:07)
[2019-10-19] MEDS: TAMSULOSIN HCL 0.4 MG CAP PO SCH (09:11)
[2019-10-19] MEDS: FLUCONAZOLE 100 MG TABLET (DIFLUCAN) PO SCH (09:12)
[2019-10-19] MEDS: FUROSEMIDE 20 MG TABLET PO SCH (09:12)
[2019-10-19] MEDS: POTASSIUM CHLORIDE 20 MEQ TAB.PRT.SR PO SCH (09:13)
[2019-10-19] MEDS: METHADONE HCL 10 MG TABLET PO SCH ×2 (09:13→20:07)
[2019-10-19] MEDS: BICALUTAMIDE 50 MG TABLET PO SCH (09:14)
[2019-10-19] MEDS: DOCUSATE SODIUM 250 MG CAPSULE PO SCH (09:14)
[2019-10-19] MEDS: MUPIROCIN 2% TOPICAL OINTMENT 22 GM TP SCH ×2 (09:15→20:08)
[2019-10-19 12:01] LABS: HAPTOGLOBIN 354 mg/dL (38-329)
[2019-10-19 12:14] VITALS: BP_SYST 116
[2019-10-19 16:24] VITALS: BP_SYST 124
[2019-10-19] MEDS: BALSAM PERU/CASTOR OIL 60 GM OINT...G. TP SCH (17:07)
[2019-10-19 20:00] VITALS: BP_SYST 136
[2019-10-19] MEDS: ERTAPENEM SODIUM 1 GM in NS 50 ML IV SCH (20:07)
[2019-10-19] MEDS: MORPHINE 2 MG/ML INJ. SYRINGE IVP PRN (21:18)
[2019-10-19 22:15] VITALS: BP_SYST 132
[2019-10-21 08:21] LABS: FOLATE (FOLIC ACID) 19.1 ng/mL (>3.0)
== END 2019-10-19 22:35 | DRG 377 ==
LOC: SED 14:47 → STU 17:04
PROVIDERS: ADMIT Internal Medicine Hospice and Palliative Medicine; ATTEND Internal Medicine Hospice and Palliative Medicine
PROC: 30233N1 Transfusion of Nonautologous Red Blood Cells into Peripheral Vein, Percutaneous Approach (ICD-10-PCS; principal; 2019-10-16)
DX: K92.2 Gastrointestinal hemorrhage, unspecified (principal); E43 Unspecified severe protein-calorie malnutrition; N39.0 Urinary tract infection, site not specified; E87.1 Hypo-osmolality and hyponatremia; I12.9 Hypertensive chronic kidney disease with stage 1 through stage 4 chronic kidney disease, or unspecified chronic kidney disease; N18.9 Chronic kidney disease, unspecified; L89.90 Pressure ulcer of unspecified site, unspecified stage; F03.90 Unspecified dementia, unspecified severity, without behavioral disturbance, psychotic disturbance, mood disturbance, and anxiety; G89.29 Other chronic pain; J44.9 Chronic obstructive pulmonary disease, unspecified; M06.9 Rheumatoid arthritis, unspecified; M19.90 Unspecified osteoarthritis, unspecified site; D63.8 Anemia in other chronic diseases classified elsewhere; B96.20 Unspecified Escherichia coli [E. coli] as the cause of diseases classified elsewhere; N40.0 Benign prostatic hyperplasia without lower urinary tract symptoms; R13.10 Dysphagia, unspecified; Z85.46 Personal history of malignant neoplasm of prostate; Z90.49 Acquired absence of other specified parts of digestive tract; Z79.899 Other long term (current) drug therapy; Z93.1 Gastrostomy status; Z68.26 Body mass index [BMI] 26.0-26.9, adult
CPT/HCPCS: 36415; 71045; 80053; 81000-TC; 82272; 82607; 82728; 82746; 83010; 83540-TC; 83550-TC; 83605; 83615-TC; 84153; 84155; 84165; 84443-TC; 84484; 85018-TC; 85025; 85044-TC; 85610-TC; 85651-TC; 85730-TC; 86140; 86886; 86900; 86901; 86920; 87040-TC; 87070-TC; 87081; 87086; 87186-TC; 93005; 99285; C9113; G0378; J1335; J2270; J7040; P9021